=== PATIENT | female | born 1995 | race Two or more races ===

== ENCOUNTER 2018-02-14 00:53 | Observation (INO) | payer OTHER ==
[2018-02-14 01:16] VITALS: BMI 23.3
--- NOTE | 2018-02-14 01:47 | PDOC ---
History of Present Illness - General Chief Complaint: Nausea/Vomiting Stated Complaint: VOMITING, Time Seen by Provider: 02/14/18 01:41 History Source: Patient Exam Limitations: No Limitations - History of Present Illness Initial Comments: 02/14/18 02:13 HISTORY OF PRESENT ILLNESS: This is a 22-year-old presents emergency Department with lower abdominal and lower back pain for the past 3 days. Patient reports subjective fever but has not checked. Patient is afebrile here. Patient reports she has been vomiting more than 10 times in the past 24 hours. Vaginal discharge, vaginal bleeding, dysuria, hematuria, urinary frequency or urinary urgency. No recent travel or sick contacts. PAST MEDICAL HISTORY: Denies past medical history SURGICAL HISTORY: Denies ALLERGIES: No known drug allergies REVIEW OF SYSTEMS General/Constitutional: subjective fever. Denies weakness, weight change. HEENT: Denies change in vision. Denies ear pain or discharge. Denies sore throat. Cardiovascular: Denies chest pain or shortness of breath. Respiratory: Denies cough, wheezing, or hemoptysis. Gastrointestinal: Denies nausea, vomiting, diarrhea or constipation. Denies rectal bleeding. Genitourinary: Denies dysuria, frequency, or change in urination. Musculoskeletal: Denies joint or muscle swelling or pain. Denies neck pain. Diffuse lower back pain. Skin and breasts: Denies rash or easy bruising. Neurologic: Denies headache, vertigo, loss of consciousness, or loss of sensation. Psychiatric: Denies depression or anxiety. Endocrine: Denies increased thirst. Denies abnormal weight change. Hematologic/Lymphatic: Denies anemia, easy bleeding, or history of blood clots. Allergic/Immunologic: Denies hives or skin allergy. Denies latex allergy. PHYSICAL EXAM General Appearance: Well-appearing, appropriately dressed. No apparent distress , no intoxication. HEENT: EOMI, PERRLA, normal ENT inspection, normal voice, TMs normal, pharynx normal. No conjunctival pallor. No photophobia, scleral icterus. Neck: Supple. Trachea midline. No tenderness, rigidity, carotid bruit, stridor , lymphadenopathy, or thyromegaly. Respiratory/Chest: Lungs CTAB. No shortness of breath, chest tenderness, respiratory distress, accessory muscle use. No crackles, rales, rhonchi, stridor , wheezing, dullness Cardiovascular: RRR. S1, S2. No JVD, murmur, bradycardia, tachycardia. Vascular Pulses: Dorsalis-Pedis (R): 2+, Dorsalis-Pedis (L): 2+ Gastrointestinal/Abdominal: Normal bowel sounds. Abdomen soft, non-distended. No tenderness or rebound tenderness. No organomegaly, pulsatile mass, guarding, hernia, hepatomegaly, splenomegaly. Lymphatic: No adenopathy, tenderness. Musculoskeletal/Extremities: Normal inspection. FROM of all extremities, normal capillary refill. Pelvis Stable. Mild bilateral CVA tenderness. No tenderness to extremities, pedal edema, swelling, erythema or deformity. Integumentary: Appropriate color, dry, warm. 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 Fully oriented, alert. Appropriate mood/affect. Motor strength 5/5. No appreciable EOM palsy, facial droop or sensory deficit. Past History - Past Medical History Allergies/Adverse Reactions: Allergies Allergy/AdvReac Type Severity Reaction Status Date / Time No Known Allergies Allergy Verified 02/14/18 01:15 Home Medications: Ambulatory Orders No122/Iron/Folic Acid [ Multi Tablet] 1 each PO DAILY #30 tablet 02/14/18 - Suicide/Smoking/Psychosocial Hx Smoking History: Never smoked Have you smoked in the past 12 months: No Information on smoking cessation initiated: No Hx Alcohol Use: No Drug/Substance Use Hx: No *Physical Exam - Vital Signs Last Vital Signs Temp Pulse Resp BP Pulse Ox 99.3 F 110 H 20 123/76 99 02/14/18 01:15 02/14/18 01:15 02/14/18 01:15 02/14/18 01:15 02/14/18 01:15 ED Treatment Course - LABORATORY CBC & Chemistry Diagram: 02/14/18 11:20 02/14/18 11:20 Medical Decision Making - Medical Decision Making 02/14/18 02:16 A/P: 22-year-old with lower abdominal pain, lower back pain and vomiting for the past 3 days Mild bilateral CVA tenderness noted Abdomen soft nontender nondistended Patient denies care and is approximately 13 weeks by dates- LMP "end of October" DDx: Hyperemesis, renal calculi, pyelonephritis Labs, urine, normal saline, Zofran, ultrasound 02/14/18 03:20 CBC is unremarkable. Urinalysis notable for 1+ protein and 1+ ketones consistent with vomiting. Evaluation of chemistries reveals potassium at 2.8 and calcium is 6.5 corrected to 7.8. Stat EKG, potassium runs 3. Calcium chloride 40mEq. Change fluids to Normal saline with 20mEq potassium at 125cc/hr. Add-on Mg to previous sample. 02/14/18 04:26 EKG- SR with rate 94. Normal intervals. No ALESSANDRA, STD, TWI present. Mg-1.1. MgSO4 2g IV ordered. K riders on hold until after Mag. KCl 40mEq oral now. Admit to hospitalist. 02/14/18 04:31 Case d/w Dr. Cisneros who accepts pt for med/surg. *DC/Admit/Observation/Transfer Diagnosis at time of Disposition: Hyperemesis, Hypokalemia, Hypomagnesemia, Hypocalcemia - Discharge Dispostion Disposition: HOME Condition at time of disposition: Improved Decision to Admit order: Yes - Prescriptions - Referrals - Patient Instructions - Post Discharge Activity
[2018-02-14] MEDS ORDERED: ONDANSETRON 4 MG/2 ML VIAL IVPUSH ONE (02:09)
[2018-02-14] MEDS ORDERED: SODIUM CHLORIDE 1,000 ML IV STA (02:10)
--- NOTE | 2018-02-14 02:29 | PDOC ---
*Physical Exam - Vital Signs Last Vital Signs Temp Pulse Resp BP Pulse Ox 99.3 F 110 H 20 123/76 99 02/14/18 01:15 02/14/18 01:15 02/14/18 01:15 02/14/18 01:15 02/14/18 01:15 ED Treatment Course - LABORATORY CBC & Chemistry Diagram: 02/14/18 11:20 02/14/18 11:20 Medical Decision Making - Medical Decision Making 02/14/18 02:29 agree with care from DON Broussard *DC/Admit/Observation/Transfer Diagnosis at time of Disposition: Hyperemesis, Hypokalemia, Hypomagnesemia, Hypocalcemia - Discharge Dispostion Disposition: HOME Condition at time of disposition: Improved - Prescriptions - Referrals - Patient Instructions - Post Discharge Activity
[2018-02-14] MEDS ORDERED: ONDANSETRON 4 MG/2 ML VIAL ONE (02:32)
[2018-02-14 02:40] LABS: BASO % 0.2 % (0-2.0); HEMATOCRIT 32.1 % (32.4-45.2); HEMOGLOBIN 10.8 GM/dL (10.7-15.3); MCH 26.5 pg (25.7-33.7); MCHC 33.7 g/dl (32.0-36.0); MEAN CELL VOLUME 78.6 fl (80-96); MEAN PLT VOLUME 7.8 fl (7.5-11.1); MONO % 5.3 % (3.8-10.2); NEUT % 71.5 % (42.8-82.8); PLATELET COUNT 208 K/MM3 (134-434); RBC 4.09 M/mm3 (3.60-5.2); RDW 14.7 % (11.6-15.6); URINE APPEARANCE CLEAR; URINE BILIRUBIN NEGATIVE (<2.0 mg/dL); URINE COLOR DKYELLOW; URINE GLUCOSE (UA) NEGATIVE (NEGATIVE); URINE KETONE 1+ (NEGATIVE); URINE LEUK ESTERASE TRACE (NEGATIVE); URINE NITRITE NEGATIVE (NEGATIVE); URINE UROBILINOGEN 4.0 E.U/dl mg/dL (0.2-1.0); WHITE BLOOD COUNT 3.9 K/mm3 (4.0-10.0)
[2018-02-14 02:41] LABS: URINE PROTEIN 1+ (NEGATIVE)
[2018-02-14 02:43] LABS: EPI CELLS RARE /HPF (FEW); URINE BACTERIA RARE /hpf (NONE SEEN); URINE MUCUS MANY
[2018-02-14 03:03] LABS: ALBUMIN 2.4 g/dl (3.4-5.0); ALK PHOS 47 U/L (45-117); ANION GAP 8 MMOL/L (8-16); BILIRUBIN,TOTAL 0.3 mg/dL (0.2-1.0); BLOOD UREA NITROGEN 6 mg/dL (7-18); CHLORIDE 112 mmol/L (98-107); CO2 21 mmol/L (21-32); CREATININE 0.3 mg/dL (0.55-1.02); GLUCOSE,RANDOM 69 mg/dL (74-106); SGOT/AST 14 U/L (15-37); SGPT/ALT 12 U/L (12-78); SODIUM 141 mmol/L (136-145); TOT PROT 5.4 g/dl (6.4-8.2)
[2018-02-14 03:07] LABS: POTASSIUM 2.8 mmol/L (3.5-5.1)
[2018-02-14 03:08] LABS: CALCIUM 6.5 mg/dL (8.5-10.1)
[2018-02-14] MEDS ORDERED: POTASSIUM CHLORIDE ORAL LIQUID 20 MEQ/15 ML PO ONE ×3 (03:12→11:38)
[2018-02-14] MEDS ORDERED: KCL 10 MEQ IVPB 10 MEQ/100 ML INFUS.BAG IVPB SCH (03:15)
[2018-02-14] MEDS ORDERED: KCL 10 MEQ IVPB 10 MEQ/100 ML INFUS.BAG IVPB ONE (03:30)
[2018-02-14] MEDS ORDERED: SODIUM CHLORIDE 0.9%/KCL 20 MEQ/1,000 ML INFUS.BAG IV SCH (03:30)
[2018-02-14] MEDS ORDERED: POTASSIUM CHLORIDE ORAL LIQUID 20 MEQ/15 ML ONE ×2 (03:30→04:40)
[2018-02-14] MEDS ORDERED: MAGNESIUM SULF 50% (8.12 MEQ/2 ML-1 GM VIAL) IVPB ONE (04:10)
[2018-02-14] MEDS ORDERED: MAGNESIUM SULF 50% (8.12 MEQ/2 ML-1 GM VIAL) ONE (04:20)
--- NOTE | 2018-02-14 05:13 | PN ---
Teaching Attending Note Name of Resident: Humera Pablo ATTENDING PHYSICIAN STATEMENT I saw and evaluated the patient. I reviewed the resident's note and discussed the case with the resident. I agree with the resident's findings and plan as documented. SUBJECTIVE: Patient is a 22 year old who is 12 weeks , presents to the ER with vomiting, lower abdominal and lower back pain for the past 3 days. Patient reports subjective fever but has not checked. Patient is afebrile here. Patient reports she has been vomiting more than 10 times in the past 24 hours. Denies abnormal vaginal discharge, vaginal bleeding, dysuria, itch area, urinary frequency or urinary urgency. OBJECTIVE: Alert Vital Signs Period Temp Pulse Resp BP Sys/Turner Pulse Ox Last 24 Hr 99.3 F 110 20 123/76 99 HEENT: No Jaundice, eye redness or discharge, PERRLA, EOMI. Normocephalic, atraumatic. External ears are normal and hearing is grossly intact. No nasal discharge. Neck: Supple, nontender. No palpable adenopathy or thyromegaly. No JVD Chest: Good effort. Clear to auscultation and percussion. Heart: Regular. No S3, rub or murmur Abdomen: Not distended, soft, nontender and no HSM. No rebound or guarding. Normoactive bowel sounds. Ext: Peripheral pulses intact. No leg edema. Skin: Warm and dry. No petechiae, rash or ecchymosis. Neuro: Alert. Oriented x3. CN 2-12 grossly intact. Sensation grossly intact in all four extremities and DTR are symmetric. Current Medications Generic Name Dose Route Start Last Admin Trade Name Freq PRN Reason Stop Dose Admin Potassium Chloride 10 meq in 100 mls @ 100 mls/hr 02/14/18 03:15 02/14/18 03: 31 Potassium Chloride 10 Meq Premix Ivpb - IVPB 02/14/18 06:14 100 mls/hr Q60M BRANDIE Administration Potassium Chloride/Sodium Chloride 20 meq in 1,000 mls @ 125 mls/hr 02/14/18 03:30 02/14/18 03:29 Ns+20 Meq Kcl - IV 125 mls/hr ASDIR BRANDIE Administration Famotidine/Sodium Chloride 20 mg in 50 mls @ 100 mls/hr 02/14/18 05:21 05:26 Pepcid 20 Mg Premixed Ivpb - IVPB 02/14/18 05:50 100 mls/hr ONCE ONE Administration Home Medications Medication Instructions Recorded NK [No Known Home Medication] 02/14/18 Abnormal Lab Results 02/14/18 02/14/18 02/14/18 02:30 02:30 02:30 WBC 3.9 L Hct 32.1 L MCV 78.6 L Potassium 2.8 L* Chloride 112 H BUN 6 L Creatinine 0.3 L Random Glucose 69 L Calcium 6.5 L* Magnesium AST 14 L Total Protein 5.4 L Albumin 2.4 L Urine Protein 1+ H Urine Ketones 1+ H Urine Urobilinogen 4.0 e.u/dl H 02/14/18 03:30 WBC Hct MCV Potassium Chloride BUN Creatinine Random Glucose Calcium Magnesium 1.1 L AST Total Protein Albumin Urine Protein Urine Ketones Urine Urobilinogen ASSESSMENT AND PLAN: 1. Hyperemesis gravidarum with electrolyte abnormalities - No evidence of UTI. Will treat with IV NS and continue to replenish K, Mg+ and Calcium. Check phospshate. Continue pepcid and zofran. Low albumin, unusually "high" BP for and proteinuria are concerning. 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 Urine toxicology. 2. DVT prophylaxis - Heparin 5000u sq tid. 3. Advance directives - Full code
[2018-02-14] MEDS ORDERED: FAMOTIDINE 20 MG/50 ML IVPB 20 MG/50 ML MG IVPB ONE ×2 (05:21→05:22)
[2018-02-14] MEDS ORDERED: ONDANSETRON 4 MG/2 ML VIAL IVPUSH PRN (05:46)
--- NOTE | 2018-02-14 06:01 | HP ---
CHIEF COMPLAINT:severe vomiting and lower back pain X2 days PCP: HISTORY OF PRESENT ILLNESS: 22 y.o female with no significant past medical history presents to the ED with severe vomiting (around 20 episodes) over the past two days. Patient has not been able to keep any food down nor is she really tolerating any liquids. She had morning sickness with her first but it was not this bad. She is having R sided back pain, however, she is denying any urinary symptoms. ER course was notable for: (1) K: 2.8, Mg 1.1, Hgb 10.8 (2)U/A shows 4.0 urobilinogen, 1+ ketones, 1+ proteinuria (3) Recent Travel: none PAST MEDICAL HISTORY: no significant past medical history PAST SURGICAL HISTORY: none Social History: Smoking: smoked hookah 3 days ago Alcohol:denies Drugs: denies Family History: Allergies No Known Allergies Allergy (Verified 02/14/18 01:15) HOME MEDICATIONS: Home Medications Medication Instructions Recorded NK [No Known Home Medication] 02/14/18 REVIEW OF SYSTEMS CONSTITUTIONAL: Present: malaise, loss of appetite, Absent: fever, chills, diaphoresis, generalized weakness, weight change HEENT: Absent: rhinorrhea, nasal congestion, throat pain, throat swelling, difficulty swallowing, mouth swelling, ear pain, eye pain, visual changes CARDIOVASCULAR: Absent: chest pain, syncope, palpitations, irregular heart rate, lightheadedness , peripheral edema RESPIRATORY: Absent: cough, shortness of breath, dyspnea with exertion, orthopnea, wheezing, stridor, hemoptysis GASTROINTESTINAL: Present:nausea, vomiting, Absent: abdominal pain, abdominal distension, diarrhea, constipation, melena, hematochezia GENITOURINARY: Present:flank pain, Absent: dysuria, frequency, urgency, hesitancy, hematuria, genital pain MUSCULOSKELETAL: Absent: myalgia, arthralgia, joint swelling, back pain, neck pain SKIN: Absent: rash, itching, pallor HEMATOLOGIC/IMMUNOLOGIC: Absent: easy bleeding, easy bruising, lymphadenopathy, frequent infections ENDOCRINE: Absent: unexplained weight gain, unexplained weight loss, heat intolerance, cold intolerance NEUROLOGIC: Absent: headache, focal weakness or paresthesias, dizziness, unsteady gait, seizure, mental status changes, bladder or bowel incontinence PSYCHIATRIC: Absent: anxiety, depression, suicidal or homicidal ideation, hallucinations. PHYSICAL EXAMINATION Vital Signs - 24 hr 02/14/18 01:15 Temperature 99.3 F Pulse Rate 110 H Respiratory 20 Rate Blood Pressure 123/76 O2 Sat by Pulse 99 Oximetry (%) GENERAL: Awake, alert, and fully oriented, in no acute distress. LUNGS: Breath sounds equal, clear to auscultation bilaterally. No wheezes, and no crackles. No accessory muscle use. HEART: Regular rate and rhythm, normal S1 and S2 without murmur, rub or gallop. ABDOMEN: Soft, nontender, not distended, normoactive bowel sounds, no guarding, no rebound, no masses. No hepatomegaly or splenomegaly. MUSCULOSKELETAL: Normal range of motion at all joints. No bony deformities or tenderness. No CVA tenderness. EXTREMITIES: warm; well perfused; no clubbing cyanosis or LE edema NEUROLOGICAL: Cranial nerves II-XII intact. Normal speech. Normal gait. PSYCHIATRIC: Cooperative. Good eye contact. Appropriate mood and affect. SKIN: Warm, dry, normal turgor, no rashes or lesions noted, normal capillary refill. Laboratory Results - last 24 hr 02/14/18 02/14/18 02/14/18 02:30 02:30 02:30 WBC 3.9 L RBC 4.09 Hgb 10.8 Hct 32.1 L MCV 78.6 L MCH 26.5 MCHC 33.7 RDW 14.7 Plt Count 208 MPV 7.8 Absolute Neuts (auto) 2.8 Neutrophils % 71.5 Lymphocytes % 23.0 Monocytes % 5.3 Eosinophils % 0.0 Basophils % 0.2 Nucleated RBC % 0 Sodium 141 Potassium 2.8 L* Chloride 112 H Carbon Dioxide 21 Anion Gap 8 BUN 6 L Creatinine 0.3 L Creat Clearance w eGFR > 60 Random Glucose 69 L Calcium 6.5 L* Magnesium Total Bilirubin 0.3 AST 14 L ALT 12 Alkaline Phosphatase 47 Total Protein 5.4 L Albumin 2.4 L Urine Color Dkyellow Urine Appearance Clear Urine pH 6.0 Ur Specific [place] 1.026 Urine Protein 1+ H Urine Glucose (UA) Negative Urine Ketones 1+ H Urine Blood Negative Urine Nitrite Negative Urine Bilirubin Negative Urine Urobilinogen 4.0 e.u/dl H Ur Leukocyte Esterase Trace Urine WBC (Auto) 3 Urine RBC (Auto) 2 Ur Epithelial Cells Rare Urine Bacteria Rare Urine Mucus Many Blood Type Antibody Screen 02/14/18 02/14/18 02:30 03:30 WBC RBC Hgb Hct MCV MCH MCHC RDW Plt Count MPV Absolute Neuts (auto) Neutrophils % Lymphocytes % Monocytes % Eosinophils % Basophils % Nucleated RBC % Sodium Potassium Chloride Carbon Dioxide Anion Gap BUN Creatinine Creat Clearance w eGFR Random Glucose Calcium Magnesium 1.1 L Total Bilirubin AST ALT Alkaline Phosphatase Total Protein Albumin Urine Color Urine Appearance Urine pH Ur Specific [place] Urine Protein Urine Glucose (UA) Urine Ketones Urine Blood Urine Nitrite Urine Bilirubin Urine Urobilinogen Ur Leukocyte Esterase Urine WBC (Auto) Urine RBC (Auto) Ur Epithelial Cells Urine Bacteria Urine Mucus Blood Type A POSITIVE Antibody Screen Negative ASSESSMENT/PLAN: 22 y.o female with no significant past medical history presents to the ED with severe vomiting (around 20 episodes) over the past two days found to have severe electrolyte abnormalities . Hyperemesis Gravidarum with electrolyte abnormality: -giving IV fluids -repleting K, Mg,- repeat BMP this AM -urine toxicology given smoking history and cyclical vomiting -zofran and pepcid PRN for nausea -geology technician consult Anemia: -anemia workup in progress -f/u CBC in AM DVT Prophylaxis: Heparin 5000 sq F/E/N: NS +20meq Kcl replete electrolytes PO as tolerated Problem List - Problem (1) Hyperemesis Code(s): R11.10 - VOMITING, UNSPECIFIED (2) Hypocalcemia Code(s): E83.51 - HYPOCALCEMIA (3) Hypokalemia Code(s): E87.6 - HYPOKALEMIA (4) Hypomagnesemia Code(s): E83.42 - HYPOMAGNESEMIA Visit type - Emergency Visit Emergency Visit: Yes ED Registration Date: 02/14/18 Care time: The patient presented to the Emergency Department on the above date and was hospitalized for further evaluation of their emergent condition. - New Patient This patient is new to me today: Yes Date on this admission: 02/14/18 - Critical Care Critical Care patient: No Hospitalist Screening - Colonoscopy Questionnaire Colonoscopy Questionnaire: Colonoscopy Questionnaire - Patient: 50 - 75 years old and never had a screening colonoscopy: Unknown History of colon or rectal polyps, or CA: Unknown History of IBD, Crohn's disease or UC: Unknown History of abdominal radiation therapy as a child: Unknown - Relative: 1 with colon or rectal CA, or polyps at age 60 or younger: Unknown Colon or rectal CA diagnosed at age 45 or younger: Unknown Multiple relatives with colon or rectal CA: Unknown - Outcome: Screening Result: Negative Screen
[2018-02-14 06:06] LABS: VENOUS PC02 35.3 mmHg (38-52); VENOUS PH 7.39 (7.32-7.42); VENOUS PO2 29.2 mmHg (28-48)
--- NOTE | 2018-02-14 09:43 | EKG ---
Test Reason : Blood Pressure : / mmHG Vent. Rate : 094 BPM Atrial Rate : 094 BPM P-R Int : 164 ms QRS Dur : 082 ms QT Int : 346 ms P-R-T Axes : 057 062 034 degrees QTc Int : 432 ms NORMAL SINUS RHYTHM NORMAL ECG NO PREVIOUS ECGS AVAILABLE Confirmed by Humberto Baig MD ([id number]) on 02/14/2018 9:43:43 AM Referred By: Confirmed By:Humberto Baig MD
[2018-02-14 11:12] VITALS: BP 101/65; PULSE 103; TEMP 98.8
[2018-02-14 11:47] LABS: HEMATOCRIT 33.3 % (32.4-45.2); HEMOGLOBIN 11.2 GM/dL (10.7-15.3); MCH 26.4 pg (25.7-33.7); MCHC 33.6 g/dl (32.0-36.0); MEAN CELL VOLUME 78.6 fl (80-96); MEAN PLT VOLUME 8.1 fl (7.5-11.1); PLATELET COUNT 213 K/MM3 (134-434); RBC 4.23 M/mm3 (3.60-5.2); RDW 15.3 % (11.6-15.6); WHITE BLOOD COUNT 3.4 K/mm3 (4.0-10.0)
[2018-02-14 12:18] LABS: ANION GAP 8 MMOL/L (8-16); BLOOD UREA NITROGEN 5 mg/dL (7-18); CALCIUM 8.1 mg/dL (8.5-10.1); CHLORIDE 107 mmol/L (98-107); CO2 23 mmol/L (21-32); CREATININE 0.5 mg/dL (0.55-1.02); GLUCOSE,RANDOM 83 mg/dL (74-106); MAGNESIUM 2.1 mg/dL (1.8-2.4); PHOSPHOROUS 2.5 mg/dL (2.5-4.9); POTASSIUM 4.3 mmol/L (3.5-5.1); SODIUM 138 mmol/L (136-145)
[2018-02-14] MEDS ORDERED: MAGNESIUM 2GM/50ML STERILE WATER IVPB IVPB ONE (13:00)
--- NOTE | 2018-02-14 14:32 | DS ---
Physical Exam: SUBJECTIVE: Patient seen and examined at bedside on the maternity unit. She complains of her arm burning from the IV OBJECTIVE: Vital Signs Period Temp Pulse Resp BP Sys/Turner Pulse Ox Last 24 Hr 98.4 F-99.3 F 94-110 18-20 90-123/51-76 98-99 PHYSICAL EXAM GENERAL: The patient is awake, alert, and fully oriented, in no acute distress. HEAD: Normal with no signs of trauma. EYES: PERRL, extraocular movements intact. ENT: moist mucous membranes. NECK: Trachea midline, full range of motion, supple. LUNGS: Breath sounds equal, clear to auscultation bilaterally, no wheezes, no crackles, no accessory muscle use. HEART: Regular rate and rhythm, S1, S2 without murmur, rub or gallop. ABDOMEN: Soft, gravid uterus appreciated about 4 centimeters from the navel. nontender, nondistended EXTREMITIES: warm, well-perfused, no edema. NEUROLOGICAL: Cranial nerves II through XII grossly intact. SKIN: Warm, dry LABS Laboratory Results - last 24 hr 02/14/18 02/14/18 02/14/18 02:30 02:30 02:30 WBC 3.9 L RBC 4.09 Hgb 10.8 Hct 32.1 L MCV 78.6 L MCH 26.5 MCHC 33.7 RDW 14.7 Plt Count 208 MPV 7.8 Absolute Neuts (auto) 2.8 Neutrophils % 71.5 Lymphocytes % 23.0 Monocytes % 5.3 Eosinophils % 0.0 Basophils % 0.2 Nucleated RBC % 0 Retic Count VBG pH POC VBG pCO2 POC VBG pO2 Mixed VBG HCO3 Sodium 141 Potassium 2.8 L* Chloride 112 H Carbon Dioxide 21 Anion Gap 8 BUN 6 L Creatinine 0.3 L Creat Clearance w eGFR > 60 Random Glucose 69 L Calcium 6.5 L* Phosphorus Magnesium Ferritin Total Bilirubin 0.3 AST 14 L ALT 12 Alkaline Phosphatase 47 Total Protein 5.4 L Albumin 2.4 L Urine Color Dkyellow Urine Appearance Clear Urine pH 6.0 Ur Specific [place] 1.026 Urine Protein 1+ H Urine Glucose (UA) Negative Urine Ketones 1+ H Urine Blood Negative Urine Nitrite Negative Urine Bilirubin Negative Urine Urobilinogen 4.0 e.u/dl H Ur Leukocyte Esterase Trace Urine WBC (Auto) 3 Urine RBC (Auto) 2 Ur Epithelial Cells Rare Urine Bacteria Rare Urine Mucus Many Blood Type Antibody Screen 02/14/18 02/14/18 02/14/18 02:30 03:30 05:53 WBC RBC Hgb Hct MCV MCH MCHC RDW Plt Count MPV Absolute Neuts (auto) Neutrophils % Lymphocytes % Monocytes % Eosinophils % Basophils % Nucleated RBC % Retic Count VBG pH 7.39 POC VBG pCO2 35.3 L POC VBG pO2 29.2 Mixed VBG HCO3 20.8 Sodium Potassium Chloride Carbon Dioxide Anion Gap BUN Creatinine Creat Clearance w eGFR Random Glucose Calcium Phosphorus Magnesium 1.1 L Ferritin Total Bilirubin AST ALT Alkaline Phosphatase Total Protein Albumin Urine Color Urine Appearance Urine pH Ur Specific [place] Urine Protein Urine Glucose (UA) Urine Ketones Urine Blood Urine Nitrite Urine Bilirubin Urine Urobilinogen Ur Leukocyte Esterase Urine WBC (Auto) Urine RBC (Auto) Ur Epithelial Cells Urine Bacteria Urine Mucus Blood Type A POSITIVE Antibody Screen Negative 02/14/18 02/14/18 02/14/18 11:15 11:20 11:20 WBC 3.4 L RBC 4.23 Hgb 11.2 Hct 33.3 MCV 78.6 L MCH 26.4 MCHC 33.6 RDW 15.3 Plt Count 213 MPV 8.1 Absolute Neuts (auto) Neutrophils % Lymphocytes % Monocytes % Eosinophils % Basophils % Nucleated RBC % Retic Count 1.36 VBG pH POC VBG pCO2 POC VBG pO2 Mixed VBG HCO3 Sodium Potassium Chloride Carbon Dioxide Anion Gap BUN Creatinine Creat Clearance w eGFR Random Glucose Calcium Phosphorus Magnesium Ferritin Total Bilirubin AST ALT Alkaline Phosphatase Total Protein Albumin Urine Color Urine Appearance Urine pH Ur Specific [place] Urine Protein Urine Glucose (UA) Urine Ketones Urine Blood Urine Nitrite Urine Bilirubin Urine Urobilinogen Ur Leukocyte Esterase Urine WBC (Auto) Urine RBC (Auto) Ur Epithelial Cells Urine Bacteria Urine Mucus Blood Type A POSITIVE Antibody Screen 02/14/18 02/14/18 11:20 11:35 WBC RBC Hgb Hct MCV MCH MCHC RDW Plt Count MPV Absolute Neuts (auto) Neutrophils % Lymphocytes % Monocytes % Eosinophils % Basophils % Nucleated RBC % Retic Count VBG pH POC VBG pCO2 POC VBG pO2 Mixed VBG HCO3 Sodium 138 Potassium 4.3 Chloride 107 Carbon Dioxide 23 Anion Gap 8 BUN 5 L Creatinine 0.5 L Creat Clearance w eGFR > 60 Random Glucose 83 Calcium 8.1 L Phosphorus 2.5 Magnesium 2.1 Ferritin 13.0 Total Bilirubin AST ALT Alkaline Phosphatase Total Protein Albumin Urine Color Urine Appearance Urine pH Ur Specific [place] Urine Protein Urine Glucose (UA) Urine Ketones Urine Blood Urine Nitrite Urine Bilirubin Urine Urobilinogen Ur Leukocyte Esterase Urine WBC (Auto) Urine RBC (Auto) Ur Epithelial Cells Urine Bacteria Urine Mucus Blood Type Antibody Screen HOSPITAL COURSE: Date of Admission:02/14/18 Date of Discharge: 02/14/18 22F presents to the hospital with a chief complaint of vomiting. Patient found to have hyperemesis gravidum with electrolyte abnormalities (Mg, potassium , Calcium low). She was admitted hydrated and electrolytes repleted and labs now WNL. She also had an ultrasound done which shows a viable intrauterine estimated to be 15 weeks 6 days old. She is currently asymptomatic and patient has removed both her IVs herself because she wants to go home. 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 Patient has follow up at [facility] but wants to have care and delivery at [facility] not [facility]. Information for [address] [place] [address] clinic given to patient by RN. Minutes to complete discharge: 35 Discharge Summary Reason For Visit: HYPEREMESIS HYPOKALEMIA Current Active Problems Hyperemesis (Acute) Hyperemesis gravidarum (Acute) Hyperemesis gravidarum (Acute) Hyperemesis gravidarum before end of 22 week gestation with dehydration (Acute) Hyperemesis gravidarum before end of 22 week gestation with electrolyte imbalance (Acute) Hypocalcemia (Acute) Hypokalemia (Acute) Hypomagnesemia (Acute) Condition: Improved - Instructions Diet, Activity, Other Instructions: You were hospitalized because of your vomiting, low potassium, and low magnesium. You were treated with IV fluids and electrolytes and your electrolytes are now within the normal limits. continue to eat and hydrate yourself as tolerated. If your symptoms recur and/or get worse please call your doctor and/or go to the nearest emergency room. Please follow up with your manufacturing specialist for / care at [facility]. You should also be following with a primary care doctor. If you would like to establish care with me Please call [phone] for an appointment. I see patients every from 1-4:30pm. The address is [address] [place] [address] [place], [address] Saagstume. It is very important that you take Vitamins before, during, and after your . It was a pleasure taking care of you. Usted fue hospitalizado debido a glover vmito, potasio bajo y magnesio bajo. Le trataron con lquidos intravenosos y electrolitos y chucho electrolitos estn ahora dentro de los lmites normales. Contine comiendo e hidratarse kimberlyn se tolera. Si chucho sntomas se repiten y/o empeoran, por favor llame a glover mdico y/o dirjase a la jhonatan de emergencias ms cercana. Por favor siga con glover obstetra para atencin / en el centro de [facility]. Tambin debe estar siguiendo a un mdico de atencin primaria. Si usted desea establecer la atencin conmigo por favor llame [phone] para todd ashanti. Veo pacientes todos los jueves de 1 a 4:30pm. La direccin es [facility] [place], [place], [facility]. Pregunte por el Dr. Sagastume. Es muy importante que tome vitaminas prenatales antes, verónica y despus de glover embarazo. Fue un placer cuidar de ti. Referrals: Josh Sagastume, RES [Resident] - 1 Week (Call [phone] to schedule an appointment on from 1-4:30pm at [address] [place] [address], [address] ) Disposition: HOME - Home Medications Comprehensive Discharge Medication List: Ambulatory Orders No122/Iron/Folic Acid [ Multi Tablet] 1 each PO DAILY #30 tablet 02/14/18 This patient is new to me today: Yes Date on this admission: 02/14/18 Emergency Visit: Yes ED Registration Date: 02/14/18 Care time: The patient presented to the Emergency Department on the above date and was hospitalized for further evaluation of their emergent condition. Critical Care patient: No - Discharge Referral Referred to [facility] No
[2018-02-14 15:19] LABS: COCAINE, UR NEGATIVE ng/ml (CUTOFF=300); METHADONE, UR NEGATIVE ng/ml (CUTOFF=300); OPIATES, URI NEGATIVE ng/ml (CUTOFF=300); PHENCYCLIDINE,URINE NEGATIVE ng/ml (CUTOFF=25); URINE AMPHETAMINES NEGATIVE ng/ml (CUTOFF=500); URINE BARBITURATES NEGATIVE ng/ml (CUTOFF=200); URINE BENZODIAZEPINES NEGATIVE ng/ml (CUTOFF=200)
--- NOTE | 2018-02-14 16:05 | CON.OBG ---
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 Patient seen and evaluated. She 's on KCL IV and Benadryl for body itch. She has not been vomiting since admission. She feels hungry. She started care at [facility]. - History Source History Provided By: Patient Limitations to Obtaining History: No Limitations - Past Medical History ...LMP: 10/18/17 ...: Yes ...: 2 ...Para: 0 - Past Surgical History Past Surgical History: Yes: None - Alcohol/Substance Use Hx Alcohol Use: No - Smoking History Smoking history: Never smoked Have you smoked in the past 12 months: No - Social History Usual Living Arrangement: Alone History of Recent Travel: No Home Medications - Allergies Allergies/Adverse Reactions: Allergies Allergy/AdvReac Type Severity Reaction Status Date / Time No Known Allergies Allergy Verified 02/14/18 01:15 - Home Medications Home Medications: Ambulatory Orders No122/Iron/Folic Acid [ Multi Tablet] 1 each PO DAILY #30 tablet 02/14/18 Family Disease History - Family Disease History Family History: Unremarkable Review of Systems - Review of Systems Constitutional: reports: No Symptoms Eyes: reports: No Symptoms HENT: reports: No Symptoms Neck: reports: No Symptoms Cardiovascular: reports: No Symptoms Gastrointestinal: reports: Nausea Genitourinary: reports: No Symptoms Musculoskeletal: reports: No Symptoms Integumentary: reports: Pruritis Neurological: reports: No Symptoms Endocrine: reports: No Symptoms Psychiatric: reports: No Symptoms Pain Intensity: 0 Physical Exam-TOOL HARDENER Vital Signs: Vital Signs Temperature 98.8 F 02/14/18 10:00 Pulse Rate 103 H 02/14/18 10:00 Respiratory Rate 20 02/14/18 10:00 Blood Pressure 101/65 02/14/18 10:00 O2 Sat by Pulse Oximetry (%) 98 02/14/18 06:43 Constitutional: Yes: No Distress Eyes: Yes: Conjunctiva Clear HENT: Yes: Atraumatic Cardiovascular: Yes: Regular Rate and Rhythm Respiratory: Yes: Regular External Genitalia: Yes: Normal Vaginal Exam: Yes: Normal Uterus: Yes: Other (Gravid) Extremities: Yes: WNL Neurological: Yes: Alert, Oriented ...Motor Strength: WNL Psychiatric: Yes: Alert, Oriented Labs: CBC, BMP 02/14/18 11:20 02/14/18 11:20 Assessment/Plan Nausea / Vomiting in 12 weeks gestation Stable Follow up for care as outpatient
--- NOTE | 2018-02-14 16:49 | PN ---
Teaching Attending Note Name of Resident: Josh Sagastume ATTENDING PHYSICIAN STATEMENT I saw and evaluated the patient. I reviewed the resident's note and discussed the case with the resident. I agree with the resident's findings and plan as documented. SUBJECTIVE: Patient has no complaints. Tolerating diet. Had burning at IV site while KCl was infusing. OBJECTIVE: Vital Signs Period Temp Pulse Resp BP Sys/Turner Pulse Ox Last 24 Hr 98.4 F-99.3 F 94-110 18-20 90-123/51-76 98-99 HEART: S1S2, RRR LUNGS: Clear ABDOMEN: Soft, non-tender, normal BS EXTREMITIES: No edema Laboratory Results - last 24 hr 02/14/18 02/14/18 02/14/18 02:30 02:30 02:30 WBC 3.9 L RBC 4.09 Hgb 10.8 Hct 32.1 L MCV 78.6 L MCH 26.5 MCHC 33.7 RDW 14.7 Plt Count 208 MPV 7.8 Absolute Neuts (auto) 2.8 Neutrophils % 71.5 Lymphocytes % 23.0 Monocytes % 5.3 Eosinophils % 0.0 Basophils % 0.2 Nucleated RBC % 0 Retic Count VBG pH POC VBG pCO2 POC VBG pO2 Mixed VBG HCO3 Sodium 141 Potassium 2.8 L* Chloride 112 H Carbon Dioxide 21 Anion Gap 8 BUN 6 L Creatinine 0.3 L Creat Clearance w eGFR > 60 Random Glucose 69 L Calcium 6.5 L* Phosphorus Magnesium Ferritin Total Bilirubin 0.3 AST 14 L ALT 12 Alkaline Phosphatase 47 Total Protein 5.4 L Albumin 2.4 L Urine Color Dkyellow Urine Appearance Clear Urine pH 6.0 Ur Specific [place] 1.026 Urine Protein 1+ H Urine Glucose (UA) Negative Urine Ketones 1+ H Urine Blood Negative Urine Nitrite Negative Urine Bilirubin Negative Urine Urobilinogen 4.0 e.u/dl H Ur Leukocyte Esterase Trace Urine WBC (Auto) 3 Urine RBC (Auto) 2 Ur Epithelial Cells Rare Urine Bacteria Rare Urine Mucus Many Opiates Screen Methadone Screen Barbiturate Screen Phencyclidine Screen Ur Amphetamines Screen MDMA (Ecstasy) Screen Benzodiazepines Screen Cocaine Screen U Marijuana (THC) Screen Blood Type Antibody Screen 02/14/18 02/14/18 02/14/18 02:30 03:30 05:53 WBC RBC Hgb Hct MCV MCH MCHC RDW Plt Count MPV Absolute Neuts (auto) Neutrophils % Lymphocytes % Monocytes % Eosinophils % Basophils % Nucleated RBC % Retic Count VBG pH 7.39 POC VBG pCO2 35.3 L POC VBG pO2 29.2 Mixed VBG HCO3 20.8 Sodium Potassium Chloride Carbon Dioxide Anion Gap BUN Creatinine Creat Clearance w eGFR Random Glucose Calcium Phosphorus Magnesium 1.1 L Ferritin Total Bilirubin AST ALT Alkaline Phosphatase Total Protein Albumin Urine Color Urine Appearance Urine pH Ur Specific [place] Urine Protein Urine Glucose (UA) Urine Ketones Urine Blood Urine Nitrite Urine Bilirubin Urine Urobilinogen Ur Leukocyte Esterase Urine WBC (Auto) Urine RBC (Auto) Ur Epithelial Cells Urine Bacteria Urine Mucus Opiates Screen Methadone Screen Barbiturate Screen Phencyclidine Screen Ur Amphetamines Screen MDMA (Ecstasy) Screen Benzodiazepines Screen Cocaine Screen U Marijuana (THC) Screen Blood Type A POSITIVE Antibody Screen Negative 02/14/18 02/14/18 02/14/18 11:15 11:20 11:20 WBC 3.4 L RBC 4.23 Hgb 11.2 Hct 33.3 MCV 78.6 L MCH 26.4 MCHC 33.6 RDW 15.3 Plt Count 213 MPV 8.1 Absolute Neuts (auto) Neutrophils % Lymphocytes % Monocytes % Eosinophils % Basophils % Nucleated RBC % Retic Count 1.36 VBG pH POC VBG pCO2 POC VBG pO2 Mixed VBG HCO3 Sodium Potassium Chloride Carbon Dioxide Anion Gap BUN Creatinine Creat Clearance w eGFR Random Glucose Calcium Phosphorus Magnesium Ferritin Total Bilirubin AST ALT Alkaline Phosphatase Total Protein Albumin Urine Color Urine Appearance Urine pH Ur Specific [place] Urine Protein Urine Glucose (UA) Urine Ketones Urine Blood Urine Nitrite Urine Bilirubin Urine Urobilinogen Ur Leukocyte Esterase Urine WBC (Auto) Urine RBC (Auto) Ur Epithelial Cells Urine Bacteria Urine Mucus Opiates Screen Methadone Screen Barbiturate Screen Phencyclidine Screen Ur Amphetamines Screen MDMA (Ecstasy) Screen Benzodiazepines Screen Cocaine Screen U Marijuana (THC) Screen Blood Type A POSITIVE Antibody Screen 02/14/18 02/14/18 02/14/18 11:20 11:35 12:30 WBC RBC Hgb Hct MCV MCH MCHC RDW Plt Count MPV Absolute Neuts (auto) Neutrophils % Lymphocytes % Monocytes % Eosinophils % Basophils % Nucleated RBC % Retic Count VBG pH POC VBG pCO2 POC VBG pO2 Mixed VBG HCO3 Sodium 138 Potassium 4.3 Chloride 107 Carbon Dioxide 23 Anion Gap 8 BUN 5 L Creatinine 0.5 L Creat Clearance w eGFR > 60 Random Glucose 83 Calcium 8.1 L Phosphorus 2.5 Magnesium 2.1 Ferritin 13.0 Total Bilirubin AST ALT Alkaline Phosphatase Total Protein Albumin Urine Color Urine Appearance Urine pH Ur Specific [place] Urine Protein Urine Glucose (UA) Urine Ketones Urine Blood Urine Nitrite Urine Bilirubin Urine Urobilinogen Ur Leukocyte Esterase Urine WBC (Auto) Urine RBC (Auto) Ur Epithelial Cells Urine Bacteria Urine Mucus Opiates Screen Negative Methadone Screen Negative Barbiturate Screen Negative Phencyclidine Screen Negative Ur Amphetamines Screen Negative MDMA (Ecstasy) Screen Negative Benzodiazepines Screen Negative Cocaine Screen Negative U Marijuana (THC) Screen Negative Blood Type Antibody Screen ASSESSMENT AND PLAN: This is a 20 year old woman who presented to the ED with vomiting and found to have low potassium and magnesium. 1. Hyperemesis gravidarum with hypokalemia, hypomagnesemia - Potassium and magnesium have normalized - Tolerating diet 2. - US shows intrauterine gestation 15 weeks 6 days 3. Disposition - Ok for discharge home
[2018-02-15 06:06] LABS: SERUM IRON SATURATION 14 % (15-55); TOTAL IRON BINDING CAPACITY 332 ug/dL (250-450); UIBC 285 ug/dL (131-425)
== END 2018-02-14 14:30 | disposition home or self-care (01) ==
LOC: JER 00:53 → JERBED 04:33 → UNDOADMOB 04:42 → JERBED 04:42 → J3W 06:14
PROVIDERS: ADMIT Internal Medicine; ATTEND Internal Medicine
PROC: 3E033GC Introduction of Other Therapeutic Substance into Peripheral Vein, Percutaneous Approach (ICD-10-PCS; principal; 2018-02-14)
DX: O21.1 Hyperemesis gravidarum with metabolic disturbance (principal); Z3A.12 12 weeks gestation of pregnancy; E83.42 Hypomagnesemia; E83.51 Hypocalcemia
CPT/HCPCS: 36415; 76815-TC; 80048; 80053; 80307; 81003; 81015; 82728; 82803; 83540; 83550; 83735; 84100; 85025; 85027; 85044; 86850; 86900; 86901; 87086; 93005; 93010; 96374; 96375; 99283-25; G0378; J7030

== ENCOUNTER 2018-04-12 02:43 | Emergency (ER) | payer OTHER ==
[2018-04-12 04:10] VITALS: BMI 24.0
[2018-04-12] MEDS ORDERED: DEXTROSE 5%-LACTATED RINGERS 500 ML IV ONE (06:00)
[2018-04-12 06:37] LABS: URINE APPEARANCE SLCLOUDY; URINE COLOR AMBER; URINE GLUCOSE (UA) NEGATIVE (NEGATIVE); URINE KETONE 2+ (NEGATIVE); URINE LEUK ESTERASE 1+ (NEGATIVE); URINE NITRITE POSITIVE (NEGATIVE); URINE PROTEIN 1+ (NEGATIVE); URINE UROBILINOGEN 4.0 E.U/dl mg/dL (0.2-1.0)
[2018-04-12 06:39] LABS: HEMOGLOBIN 11.5 GM/dL (10.7-15.3); MCH 26.1 pg (25.7-33.7); MCHC 32.9 g/dl (32.0-36.0); MEAN CELL VOLUME 79.4 fl (80-96); PLATELET COUNT 257 K/MM3 (134-434); RDW 13.1 % (11.6-15.6); WHITE BLOOD COUNT 8.3 K/mm3 (4.0-10.0)
[2018-04-12 06:53] LABS: EPI CELLS RARE /HPF (FEW); URINE BACTERIA MANY /hpf (NONE SEEN); URINE MUCUS MANY
[2018-04-12] MEDS ORDERED: DEXTROSE 5%-LACTATED RINGERS 1,000 ML IV SCH (07:00)
[2018-04-12 07:05] LABS: ALBUMIN 3.1 g/dl (3.4-5.0); ALK PHOS 95 U/L (45-117); ANION GAP 12 MMOL/L (8-16); BILIRUBIN,TOTAL 0.9 mg/dL (0.2-1); BLOOD UREA NITROGEN 9 mg/dL (7-18); CALCIUM 8.7 mg/dL (8.5-10.1); CHLORIDE 100 mmol/L (98-107); CO2 24 mmol/L (21-32); CREATININE 0.4 mg/dL (0.55-1.3); GLUCOSE,RANDOM 73 mg/dL (74-106); SGOT/AST 21 U/L (15-37); SGPT/ALT 20 U/L (13-61); SODIUM 135 mmol/L (136-145); TOT PROT 7.4 g/dl (6.4-8.2)
[2018-04-12 07:30] VITALS: BP 105/54; PULSE 105; TEMP 98.9
[2018-04-12 11:22] LABS: COCAINE, UR NEGATIVE ng/ml (CUTOFF=300); METHADONE, UR NEGATIVE ng/ml (CUTOFF=300); OPIATES, URI NEGATIVE ng/ml (CUTOFF=300); PHENCYCLIDINE,URINE NEGATIVE ng/ml (CUTOFF=25); URINE AMPHETAMINES NEGATIVE ng/ml (CUTOFF=500); URINE BARBITURATES NEGATIVE ng/ml (CUTOFF=200); URINE BENZODIAZEPINES NEGATIVE ng/ml (CUTOFF=200)
[2018-04-12 13:55] LABS: BILIRUBIN,DIRECT 0.3 mg/dL (0.0-0.2)
== END 2018-04-12 10:10 | disposition home or self-care (01) ==
LOC: JER 02:43
DX: O26.899 Other specified pregnancy related conditions, unspecified trimester (principal); R50.9 Fever, unspecified; R11.10 Vomiting, unspecified
CPT/HCPCS: 36415; 80053; 80076; 80307; 81003; 81015; 85027; 99281-25

== ENCOUNTER 2018-04-15 01:10 | Inpatient (IN) | payer OTHER ==
--- NOTE | 2018-04-15 01:21 | PDOC ---
History of Present Illness - General Stated Complaint: VOMITING/FEVER/6MO Time Seen by Provider: 04/15/18 01:20 History Source: Patient Exam Limitations: No Limitations - History of Present Illness Initial Comments: 04/15/18 01:44 This is a 22 year old female with a who is 6 months that presents with nausea and billious vomiting for the past five days. She is unable to tolerate any po intake. She denies fever, chills, abdominal pain, sick contacts, weakness , body aches. She was here on 04/12/18 for the same symptoms. She was also found to have a urinary tract infection and was sent home on macrobid. She is unable to take the medication due to nausea and vomiting. 04/15/18 01:58 Timing/Duration: 1 week Severity: severe Associated Symptoms: reports: nausea/vomiting Past History - Travel Traveled outside of the country in the last 30 days: No - Past Medical History Allergies/Adverse Reactions: Allergies Allergy/AdvReac Type Severity Reaction Status Date / Time No Known Allergies Allergy Verified 04/12/18 04:09 Home Medications: Ambulatory Orders No122/Iron/Folic Acid [ Multi Tablet] 1 each PO DAILY #30 tablet 02/14/18 Nitrofurantoin Monohyd/M-Cryst [Macrobid -] 100 mg PO BID #14 capsule 04/12/18 Anemia: No Asthma: No Cancer: No Cardiac Disorders: No Hx Myocardial Infarction: No CVA: No COPD: No CHF: No - Immunization History Immunization Up to Date: Yes - Suicide/Smoking/Psychosocial Hx Smoking History: Never smoked Have you smoked in the past 12 months: No Hx Alcohol Use: No Drug/Substance Use Hx: No Substance Use Type: None Review of Systems - Review of Systems Able to Perform ROS?: Yes Is the patient limited Kyrgyz proficient: No Constitutional: Yes: Loss of Appetite, Weakness, Unintentional Wgt. Loss. No: Chills, Diaphoresis, Fever HEENTM: No: Eye Pain, Blurred Vision, Tearing, Recent change in vision, Throat Pain, Throat Swelling, Mouth Pain Respiratory: Yes: Cough (dry). No: Shortness of Breath, SOB with Exertion, Wheezing, Hemoptysis Cardiac (ROS): No: Chest Pain, Edema, Irregular Heart Rate, Lightheadedness, Palpitations ABD/GI: No: Abdominal Distended, Constipated, Diarrhea, Difficulty Swallowing Musculoskeletal: No: Back Pain, Joint Swelling, Muscle Weakness Neurological: No: Headache, Numbness Psychiatric: No: Anxiety, Depression Endocrine: No: Excessive Sweating, Intolerance to Cold, Intolerance to Heat *Physical Exam - Physical Exam General Appearance: Yes: Moderate Distress HEENT: positive: Normal Voice, Pharynx Normal Neck: positive: Trachea midline. negative: Tender Respiratory/Chest: positive: Lungs Clear, Normal Breath Sounds Cardiovascular: positive: Regular Rhythm, Regular Rate Vascular Pulses: Carotid (R): 2+, Carotid (L): 2+ Gastrointestinal/Abdominal: positive: Normal Bowel Sounds, Soft Musculoskeletal: positive: Normal Inspection ED Treatment Course - LABORATORY CBC & Chemistry Diagram: 04/15/18 03:06 04/15/18 03:06 Medical Decision Making - Medical Decision Making 04/15/18 02:06 This is a 22 year old, six months , n/v x 5dys; cannot tolerate po. With UTI, unable to take antibiotic, po. #hyperemesis gravidarum #UTI -cbc, bmp, mg,phos, -IVF bolus -glucose, thiamine -vitamin b6, promethazine -reglan prn -IV ceftriaxone 1gm IVPB -spoke with order filler who wants to admit to medical team 04/15/18 02:13 04/15/18 04:17 -Patient still not able to take oral intake or po medication -will admit for IV antibiotics for UTI -spoke with [facility] SERVICE TECHNICIAN Dr. Overton who accepted patient for observation admission *DC/Admit/Observation/Transfer Diagnosis at time of Disposition: Hyperemesis, Poor fluid intake Qualifiers: Weeks of gestation: 24 weeks Qualified Code(s): Z3A.24 - 24 weeks gestation of UTI (urinary tract infection) Qualifiers: Urinary tract infection type: site unspecified Hematuria presence: without hematuria Qualified Code(s): N39.0 - Urinary tract infection, site not specified - Discharge Dispostion Condition at time of disposition: Fair Decision to Admit order: Yes - Referrals - Patient Instructions - Post Discharge Activity - Transfer to Acute Care Facility Accepting Physician:: Dr. Overton
[2018-04-15] MEDS ORDERED: SODIUM CHLORIDE 1,000 ML IV STA (01:38)
[2018-04-15] MEDS ORDERED: THIAMINE HCL 200 MG/2 ML VIAL IVPB ONE (01:39)
[2018-04-15] MEDS ORDERED: DEXTROSE 50%-WATER - 25 GM/50 ML VIAL IVPUSH ONE (01:39)
[2018-04-15] MEDS ORDERED: PYRIDOXINE HCL (B-6) 100 MG TABLET PO ONE (01:40)
[2018-04-15] MEDS ORDERED: PROMETHAZINE HCL 25 MG/1 ML VIAL IVPB PRN (01:41)
[2018-04-15] MEDS ORDERED: NITROFURANTOIN MACROCRYSTAL 50 MG CAPSULE (FP) PO SCH (02:00)
[2018-04-15] MEDS ORDERED: PYRIDOXINE HCL (B-6) 50 MG TABLET (FP) PO ONE (02:00)
[2018-04-15] MEDS ORDERED: NITROFURANTOIN MACROCRYSTAL 50 MG CAPSULE (FP) PO ONE (02:00)
[2018-04-15] MEDS ORDERED: THIAMINE HCL 200 MG/2 ML VIAL ONE (03:02)
[2018-04-15] MEDS ORDERED: PROMETHAZINE HCL 25 MG/1 ML VIAL IVPB ONE (03:02)
[2018-04-15] MEDS ORDERED: NITROFURANTOIN MACROCRYSTAL 50 MG CAPSULE (FP) ONE (03:02)
[2018-04-15] MEDS ORDERED: PROMETHAZINE HCL 25 MG/1 ML VIAL ONE (03:03)
[2018-04-15 03:36] LABS: BASO % 0.3 % (0-2.0); EOS % 0.7 % (0-4.5); HEMOGLOBIN 11.4 GM/dL (10.7-15.3); LYMPH % 24.9 % (8-40); MCH 26.7 pg (25.7-33.7); MCHC 33.6 g/dl (32.0-36.0); MEAN CELL VOLUME 79.6 fl (80-96); MEAN PLT VOLUME 8.1 fl (7.5-11.1); MONO % 9.1 % (3.8-10.2); PLATELET COUNT 314 K/MM3 (134-434); RBC 4.27 M/mm3 (3.60-5.2); RDW 13.3 % (11.6-15.6); WHITE BLOOD COUNT 7.3 K/mm3 (4.0-10.0)
[2018-04-15 03:39] LABS: URINE APPEARANCE CLEAR; URINE COLOR AMBER; URINE GLUCOSE (UA) NEGATIVE (NEGATIVE); URINE KETONE 2+ (NEGATIVE); URINE LEUK ESTERASE 1+ (NEGATIVE); URINE NITRITE NEGATIVE (NEGATIVE); URINE PROTEIN 1+ (NEGATIVE); URINE UROBILINOGEN 4.0 E.U/dl mg/dL (0.2-1.0)
[2018-04-15 03:50] LABS: EPI CELLS RARE /HPF (FEW); URINE MUCUS RARE
[2018-04-15] MEDS ORDERED: SODIUM CHLORIDE 0.9% 500 ML INFUS.BAG IV ONE (03:56)
[2018-04-15 03:59] LABS: ALBUMIN 2.8 g/dl (3.4-5.0); ALK PHOS 98 U/L (45-117); ANION GAP 8 MMOL/L (8-16); BLOOD UREA NITROGEN 10 mg/dL (7-18); CALCIUM 8.7 mg/dL (8.5-10.1); CHLORIDE 98 mmol/L (98-107); CO2 29 mmol/L (21-32); CREATININE 0.6 mg/dL (0.55-1.3); GLUCOSE,RANDOM 111 mg/dL (74-106); MAGNESIUM 1.8 mg/dL (1.8-2.4); PHOSPHOROUS 3.2 mg/dL (2.5-4.9); POTASSIUM 3.5 mmol/L (3.5-5.1); SGOT/AST 24 U/L (15-37); SGPT/ALT 20 U/L (13-61); SODIUM 134 mmol/L (136-145); TOT PROT 7.6 g/dl (6.4-8.2)
[2018-04-15] MEDS ORDERED: METOCLOPRAMIDE HCL INJECTION 10 MG/2 ML VIAL IVPUSH ONE (04:16)
[2018-04-15] MEDS ORDERED: METOCLOPRAMIDE HCL INJECTION 10 MG/2 ML VIAL ONE (04:34)
[2018-04-15 07:54] VITALS: BMI 26.4
--- NOTE | 2018-04-15 11:15 | HP ---
Past Medical History - Admission History of Present Illness: 22yo presents with nausea and vomiting. Unable to keep anything down for the past few days. Started on antibiotics for uti and unable to take them. Pt seen in morning and reports feeling weak and tired from the vomiting. 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: Alzheimer's, CVA, Dementia, Migraine, Multiple Sclerosis, Peripheral Neuropathy, Parkinson's, Seizure, Syncope, TIA, Vertigo, Other Cardiovascular: No: AFIB, Aneurysm, Aortic Insufficiency, Aortic Stenosis, CAD, CHF, Deep Vein Thrombosis, HTN, Hyperlipdemia, CT, Mitral Insufficiency, Mitral Stenosis, Murmur, Pulmonary Hypertension, Other Hepatobiliary: No: Cirrhosis, Cholelithiasis, Cholecystitis, Choledocholithiasis , Hepatitis A, Hepatitis B, Hepatitis C, Other Renal/: No: Renal Failure, Renal Inusuff, BPH, Cancer, Hematuria, Hemodialysis , Neurogenic Bladder, Renal Calculi, UTI, Other Reproductive: No: Ectopic , Endometriosis, Fibroids, PID, Polycystic Ovary Syndrome, Postmenopausal, Other ...: 2 ...Para: 0 ...Term: 0 ...: 0 ...Spon : 1 ...Induced : 0 ...Multiple Gestation: 0 ...EDC by Svetlana: 08/04/18 Heme/Onc: No: Anemia, B12 Deficiency, Bleeding Disorder, Cancer, Current Chemotherapy, Current Radiation Therapy, Hemochromatosis, Hypercoaguable State, Myeloproliferative Synd, Sickle Cell Disease, Sickle Cell Trait, Thrombocytopenia, Other Infectious Disease: No: AIDS, C-Diff, Herpes Zoster, HIV, MRSA, STD's, Tuberculosis, VREF, Other Psych: No: Addictions, Anxiety, Bipolar, Depression, Panic, Psychosis, Schizophrenia, Other - Past Surgical History Past Surgical History: Yes: None Hx Myomectomy: No Hx Transabdominal Cerclage: No - Smoking History Smoking history: Never smoked Have you smoked in the past 12 months: No - Alcohol/Substance Use Hx Alcohol Use: No - Social History History of Recent Travel: No Home Medications - Allergies Allergies/Adverse Reactions: Allergies Allergy/AdvReac Type Severity Reaction Status Date / Time No Known Allergies Allergy Verified 04/12/18 04:09 - Home Medications Home Medications: Ambulatory Orders No122/Iron/Folic Acid [ Multi Tablet] 1 each PO DAILY #30 tablet 02/14/18 Nitrofurantoin Monohyd/M-Cryst [Macrobid -] 100 mg PO BID #14 capsule 04/12/18 Family Disease History - Family Disease History Family History: Unremarkable Review of Systems - Review of Systems Constitutional: reports: Loss of Appetite Gastrointestinal: reports: Nausea, Vomiting Genitourinary: reports: No Symptoms Musculoskeletal: reports: No Symptoms Physical Exam - Maternity Vital Signs: Vital Signs Temperature 98.2 F 04/15/18 06:37 Pulse Rate 101 H 04/15/18 06:37 Respiratory Rate 20 04/15/18 06:37 Blood Pressure 101/70 04/15/18 06:37 O2 Sat by Pulse Oximetry (%) 98 04/15/18 06:41 Constitutional: Yes: Well Nourished, No Distress, Calm Eyes: Yes: WNL, Conjunctiva Clear, EOM Intact HENT: Yes: WNL, Atraumatic, Normocephalic Neck: Yes: WNL, Supple, Trachea Midline Cardiovascular: Yes: WNL, Regular Rate and Rhythm Breast(s): Yes: WNL - Labs Lab Results: CBC, BMP 04/15/18 03:06 04/15/18 03:06 Hemorrhage Risk Assessment - Risk Factors Medium Risk Factors: Yes: None High Risk Factors: Yes: None Risk Score: 1 Risk Level: Medium Risk Problem List - Problems (1) Hyperemesis gravidarum Assessment/Plan: 22yo with hyperemesis. ER decided admission as pt unable to tolerated admit for observation for hyperemesis diet as tolerated reglan [id number] plan for discharge in am if pt continues to tolerate Dr. Overton Code(s): O21.0 - MILD HYPEREMESIS GRAVIDARUM
[2018-04-15] MEDS: METOCLOPRAMIDE HCL INJECTION 10 MG/2 ML VIAL IVPB PRN ×2 (16:38→22:10)
[2018-04-16 06:28] VITALS: PULSE 104
[2018-04-16] MEDS: METOCLOPRAMIDE HCL INJECTION 10 MG/2 ML VIAL IVPB PRN (11:38)
[2018-04-16 12:30] VITALS: BP 95/57; TEMP 98.7
== END 2018-04-16 16:30 | disposition home or self-care (01) | DRG 566 ==
LOC: JER 01:10 → JERBED 04:21 → UNDOADMIN 05:38 → JERBED 06:20 → J3W 06:20
PROVIDERS: ADMIT Obstetrics & Gynecology; ATTEND Obstetrics & Gynecology
DX: O21.0 Mild hyperemesis gravidarum (principal); O23.42 Unspecified infection of urinary tract in pregnancy, second trimester; Z3A.24 24 weeks gestation of pregnancy
CPT/HCPCS: 36415; 80053; 81003; 81015; 83735; 84100; 85025; 85027; 87086; 99282-25; J7030

== ENCOUNTER 2019-08-09 19:48 | Inpatient (IN) | payer OTHER ==
[2019-08-09] MEDS ORDERED: IBUPROFEN 600 MG TABLET (FP) PO ONE (19:56)
[2019-08-09] MEDS ORDERED: DEXAMETHASONE LIQUID 0.5 MG/5 ML PO ONE (19:56)
--- NOTE | 2019-08-09 19:56 | PDOC ---
Rapid Medical Evaluation Time Seen by Provider: 08/09/19 19:52 Medical Evaluation: Allergies Allergy/AdvReac Type Severity Reaction Status Date / Time No Known Allergies Allergy Verified 04/12/18 04:09 08/09/19 19:52 CC: sore throat, odynophagia, dry cough, fevers PE: OP erythematous. right submandibular lymphadenopathy Orders: strep, motrin, decadron Patient will proceed to ED for continued evaluation. Discharge Disposition - Diagnosis URI (upper respiratory infection) - Referrals - Patient Instructions - Post Discharge Activity
[2019-08-09] MEDS ORDERED: ACETAMINOPHEN 650 MG/20.3 ML ORAL SOLUTION (CUPS) PO ONE (20:32)
--- NOTE | 2019-08-09 20:32 | PDOC ---
History of Present Illness - General Chief Complaint: Sore Throat Stated Complaint: THROAT PAIN/FEVER VOMITING/BLOOD Time Seen by Provider: 08/09/19 19:52 History Source: Patient - History of Present Illness Initial Comments: 08/09/19 20:35 Chief complaint: Sore throat, chicken bone Patient is a 23-year-old female with no medical problems who states she was eating chicken and rice and felt the chicken bone get stuck in her throat, complaining of sore throat, complaining of inability swallow. Patient did not talk. Patient is not hypoxic. But appears to be in pain and distress from the sensation. GENERAL/CONSTITUTIONAL: No fever, weakness. dizziness HEAD, EYES, EARS, NOSE AND THROAT: No change in vision. No ear pain or discharge. +sore throat, sensation of bone CARDIOVASCULAR: No chest pain RESPIRATORY: No shortness of breath or cough GASTROINTESTINAL: No pain, nausea, vomiting, diarrhea or constipation GENITOURINARY: No dysuria MUSCULOSKELETAL: No neck or back pain SKIN: No rash NEUROLOGIC: No headache, vertigo, loss of consciousness, or loss of sensation. GENERAL: The patient is awake, alert, and fully oriented, in no acute distress. HEAD: Normal with no signs of trauma. EYES: Pupils equal, round and reactive to light, sclera anicteric, conjunctiva clear. ENT: pharynx: no erythema, no exudate, uvula midline NECK: supple CHEST: clear, nontender, rr ABD: soft, nontender BACK: no tenderness or signs of injury EXTREMITIES: Normal range of motion, no edema. NEUROLOGICAL: Normal speech, normal gait. SKIN: Warm, Dry Past History - Past Medical History Allergies/Adverse Reactions: Allergies Allergy/AdvReac Type Severity Reaction Status Date / Time No Known Allergies Allergy Verified 08/09/19 19:56 Home Medications: Ambulatory Orders No122/Iron/Folic Acid [ Multi Tablet] 1 each PO DAILY #30 tablet 02/14/18 Nitrofurantoin Monohyd/M-Cryst [Macrobid -] 100 mg PO BID #14 capsule 04/12/18 Metoclopramide HCl [Reglan] 10 mg PO QID PRN 14 Days #60 tablet 04/16/18 Anemia: No Asthma: No Cancer: No Cardiac Disorders: No CVA: No COPD: No CHF: No Diabetes: No HTN: No Seizures: No Thyroid Disease: No - Immunization History Immunization Up to Date: Yes - Psycho Social/Smoking Cessation Hx Smoking History: Never smoked Have you smoked in the past 12 months: No Hx Alcohol Use: No Drug/Substance Use Hx: No Substance Use Type: None Hx Substance Use Treatment: No *Physical Exam - Vital Signs Last Vital Signs Temp Pulse Resp BP Pulse Ox 97.9 F 98 H 18 130/71 100 08/09/19 19:52 08/09/19 19:52 08/09/19 19:52 08/09/19 19:52 08/09/19 19:52 Medical Decision Making - Medical Decision Making 08/09/19 20:36 23-year-old female, who feels chicken bone stuck in her throat, is very uncomfortable, but is able to speak and is not hypoxic. She states it is very painful to swallow. Patient was ordered Decadron and a CT scan to see if there is a bone there. Patient will get liquid Tylenol, Maalox and viscous lidocaine , go to CT scan, strep was also sent and will be reassessed. Due to the level of the stress of the patient secondary to not feeling like she can swallow and pain, discussed with Dr. Almeida, and signed out to him for further evaluation as patient needs to be observed. Discharge - Discharge Information Problems reviewed: Yes Clinical Impression/Diagnosis: Throat pain - Follow up/Referral Referrals: Samuel Cole [Primary Care Provider] - - Patient Discharge Instructions - Post Discharge Activity
[2019-08-09] MEDS ORDERED: LIDOCAINE VISCOUS 2% ORAL/TOP 20 ML UNIT-DOSE CUP MM ONE (20:33)
[2019-08-09] MEDS ORDERED: MAG HYDROX/AL HYDROX/SIMETH -MYLANTA- ORAL SUSPENSION PO ONE (20:33)
[2019-08-09] MEDS ORDERED: MAG HYDROX/AL HYDROX/SIMETH 30 ML UNIT-DOSE CUP ONE (20:35)
[2019-08-09] MEDS ORDERED: DEXAMETHASONE SOD PHOSPHATE 10 MG/1 ML VIAL ONE (20:35)
[2019-08-09] MEDS ORDERED: ACETAMINOPHEN 650 MG/20.3 ML ORAL SOLUTION (CUPS) ONE (20:36)
[2019-08-09] MEDS ORDERED: LIDOCAINE VISCOUS 2% ORAL/TOP 20 ML UNIT-DOSE CUP ONE (20:38)
--- NOTE | 2019-08-09 22:21 | PDOC ---
*Physical Exam - Vital Signs Last Vital Signs Temp Pulse Resp BP Pulse Ox 97.9 F 98 H 18 130/71 100 08/09/19 19:52 08/09/19 19:52 08/09/19 19:52 08/09/19 19:52 08/09/19 19:52 08/10/19 00:05 - Physical Exam Assumed care of patient from fast track. The patient is 23 yo F with no past medical history presenting s/p eating a chicken bone with FB retention sensation. The patient's CT was significant for retropharyngeal fluid at the C3 space without visualization of FB. The patient continues to have pain located in the posterior pharynx. ED Treatment Course - LABORATORY CBC & Chemistry Diagram: 08/10/19 00:10 08/10/19 00:10 - Medications Given in the ED: ED Medications Discontinued Medications Generic Name Dose Route Start Last Admin Trade Name Freq PRN Reason Stop Dose Admin Acetaminophen 650 mg 08/09/19 20:32 08/09/19 20:42 Tylenol Oral Solution - PO 08/09/19 20:33 650 mg ONCE ONE Administration Al Hydroxide/Mg Hydroxide 30 ml 08/09/19 20:33 08/09/19 20:42 Mylanta Suspension - PO 08/09/19 20:34 30 mg ONCE ONE Administration Dexamethasone 10 mg 08/09/19 19:56 08/09/19 20:42 Decadron Liquid - PO 08/09/19 19:57 10 mg ONCE ONE Administration Ibuprofen 600 mg 08/09/19 19:56 08/09/19 21:00 Motrin - PO 08/09/19 19:57 Not Given ONCE ONE Lidocaine HCl 10 ml 08/09/19 20:33 08/09/19 20:43 Xylocaine 2% Viscous Oral - MM 08/09/19 20:34 10 ml ONCE ONE Administration Medical Decision Making - Medical Decision Making CT of the soft tissue without contrast noted retropharyngeal fluid without visualization of the FB. Incidentally, the CT noted that The patient continues to have pain without fever Dr. Cramer at [facility] was contacted (no ENT cash application clerk) and suggested the patient be admitted for observation with follow up with GI on outpatient. Dr. Moran was contacted who stated he would see the patient tomorrow. He advised the patient receive a CT of the soft tissue and neck with IV contrast to look for enhancement in the area of the fluid collection. If there is enhancement, recommends broad spectrum abx. If no enhancement, recommends treatment for inflammation with pain control. The patient was told about the admission. Per the patient, she does not wish to stay for admission because she has a 1 year old child at home that has no supervision other than the patient's younger family members who are not, per the patient, equipped to take care of the child. I asked the patient if it was possible to have other family members to watch the baby and she said no. The patient's mother, who was present in the room, stated she could not watch the child because she was working. When I asked the mother if she could watch the child and miss work so that the patient can be admitted, she declined to skip work. I relayed to the patient that by denying admission it would be jeopardizing her life and could result either in serious morbidities or result in . The patient understood the risks by stating she understands the danger of leaving before admission but stated she has no other choice due to lack of child adolescent psychiatrist. I asked the patient if she would allow blood work to be done and to have the re-scan in order to determine enhancement and she agreed to this. The plan is to give the patient abx prior to discharge if she continues to want to AMA if there is fluid enhancement. She stated she would come back to the hospital tomorrow after securing child adolescent psychiatrist. 08/10/19 00:09 08/10/19 01:51 Discharge - Discharge Information Problems reviewed: Yes Clinical Impression/Diagnosis: Throat pain - Follow up/Referral Referrals: Samuel Cole [Primary Care Provider] - - Patient Discharge Instructions - Post Discharge Activity
--- NOTE | 2019-08-09 22:25 | PDOC ---
*Physical Exam - Vital Signs Last Vital Signs Temp Pulse Resp BP Pulse Ox 97.9 F 98 H 18 130/71 100 08/09/19 19:52 08/09/19 19:52 08/09/19 19:52 08/09/19 19:52 08/09/19 19:52 ED Treatment Course - LABORATORY CBC & Chemistry Diagram: 08/10/19 05:40 08/10/19 05:40 - Medications Given in the ED: ED Medications Discontinued Medications Generic Name Dose Route Start Last Admin Trade Name Lupis PRN Reason Stop Dose Admin Acetaminophen 650 mg 08/09/19 20:32 08/09/19 20:42 Tylenol Oral Solution - PO 08/09/19 20:33 650 mg ONCE ONE Administration Al Hydroxide/Mg Hydroxide 30 ml 08/09/19 20:33 08/09/19 20:42 Mylanta Suspension - PO 08/09/19 20:34 30 mg ONCE ONE Administration Dexamethasone 10 mg 08/09/19 19:56 08/09/19 20:42 Decadron Liquid - PO 08/09/19 19:57 10 mg ONCE ONE Administration Ibuprofen 600 mg 08/09/19 19:56 08/09/19 21:00 Motrin - PO 08/09/19 19:57 Not Given ONCE ONE Lidocaine HCl 10 ml 08/09/19 20:33 08/09/19 20:43 Xylocaine 2% Viscous Oral - MM 08/09/19 20:34 10 ml ONCE ONE Administration Medical Decision Making - Medical Decision Making 08/09/19 23:12 Case received as uptriage from [facility], briefly, 23F c/o throat pain after swallowing a chicken bone will eval for retained foreign body, trauma analgesia f/u ct dispo per clinical course non-con CT of neck appreciated ENT evaluation Discharge - Discharge Information Problems reviewed: Yes Clinical Impression/Diagnosis: Throat pain Condition: Stable Disposition: HOME - Follow up/Referral - Patient Discharge Instructions - Post Discharge Activity
[2019-08-10 00:53] LABS: BASO % 0.1 % (0-2.0); EOS % 0.2 % (0-4.5); HEMATOCRIT 36.6 % (32.4-45.2); HEMOGLOBIN 11.8 GM/dL (10.7-15.3); LYMPH % 11.4 % (8-40); MCH 24.4 pg (25.7-33.7); MCHC 32.2 g/dl (32.0-36.0); MEAN CELL VOLUME 75.7 fl (80-96); MEAN PLT VOLUME 8.4 fl (7.5-11.1); MONO % 1.1 % (3.8-10.2); NEUT % 87.2 % (42.8-82.8); PLATELET COUNT 375 K/MM3 (134-434); RBC 4.84 M/mm3 (3.60-5.2); WHITE BLOOD COUNT 10.1 K/mm3 (4.0-10.0)
[2019-08-10 01:19] LABS: ALBUMIN 3.2 g/dl (3.4-5.0); BILIRUBIN,TOTAL 0.5 mg/dL (0.2-1); BLOOD UREA NITROGEN 10.9 mg/dL (7-18); CALCIUM 7.7 mg/dL (8.5-10.1); CREATININE 0.6 mg/dL (0.55-1.3); POTASSIUM 4.5 mmol/L (3.5-5.1); TOT PROT 7.2 g/dl (6.4-8.2)
[2019-08-10 02:19] LABS: INR 1.1 (0.83-1.09)
--- NOTE | 2019-08-10 02:37 | CON.GI ---
Consult Consult Specialty:: GI Referred by:: ER Reason for Consultation:: odynophagia - History of Present Illness Chief Complaint: [employer] psychologist experimental [id number]: pain when swallowing History of Present Illness: 23F admitted for evaluation of pain upon swallowing. She explains that this started after eating chicken 6pm yesterday evening. She is concerned that she may have swallowed a bone. non contrast CT scan of the neck revealed a small amount of retropharyngeal fluid. It failed to reveal any obvious radioopaque foreign body. She had a follow-up CT scan of the neck with IV contrast that is pending. She denies cough, fevers, chills. - History Source History Provided By: Patient - Past Medical History ...LMP: 10/18/17 Additional Medical History: Denies - Past Surgical History Past Surgical History: Yes: None Additional Surgical History: Denies - Alcohol/Substance Use Hx Alcohol Use: Yes (occasional) History of Substance Use: reports: None - Smoking History Smoking history: Current some day smoker (Hookah) Have you smoked in the past 12 months: No - Social History Usual Living Arrangement: Alone ADL: Independent History of Recent Travel: No Home Medications - Allergies Allergies/Adverse Reactions: Allergies Allergy/AdvReac Type Severity Reaction Status Date / Time No Known Allergies Allergy Verified 08/09/19 19:56 - Home Medications Home Medications: Ambulatory Orders No122/Iron/Folic Acid [ Multi Tablet] 1 each PO DAILY #30 tablet 02/14/18 Nitrofurantoin Monohyd/M-Cryst [Macrobid -] 100 mg PO BID #14 capsule 04/12/18 Metoclopramide HCl [Reglan] 10 mg PO QID PRN 14 Days #60 tablet 04/16/18 Review of Systems - Review of Systems Constitutional: denies: Chills, Fever HENT: reports: Throat Pain Physical Exam-GI Vital Signs: Vital Signs Temperature 97.5 F L 08/09/19 23:34 Pulse Rate 91 H 08/09/19 23:34 Respiratory Rate 18 08/09/19 23:34 Blood Pressure 119/79 08/09/19 23:34 O2 Sat by Pulse Oximetry (%) 100 08/09/19 23:34 Constitutional: Yes: Calm Eyes: No: Sclera Icterus Cardiovascular: Yes: Regular Rate and Rhythm Respiratory: Yes: CTA Bilaterally Gastrointestinal Inspection: No: Distention ...Auscultate: Yes: Normoactive Bowel Sounds ...Palpate: Yes: Soft. No: Hepatomegaly, Splenomegaly, Tenderness ...Percussion: No: Tympanitic Edema: No (No LE edema) Neurological: Yes: Alert Labs: CBC, BMP 08/10/19 00:10 08/10/19 00:10 INR, PTT INR 1.10 (0.83-1.09) H 08/10/19 00:10 Hepatic Panel Total Bilirubin 0.5 mg/dL (0.2-1) 08/10/19 00:10 AST 42 U/L (15-37) H 08/10/19 00:10 ALT 19 U/L (13-61) 08/10/19 00:10 Alkaline Phosphatase 97 U/L (45-117) 08/10/19 00:10 Albumin 3.2 g/dl (3.4-5.0) L 08/10/19 00:10 Imaging - Results Cat Scan: Report Reviewed Problem List - Problems (1) Throat pain Assessment/Plan: AFter having eaten chicken. Discussed the plan for upper endoscopy pending result of repeat CT scan, Discussed potential risks of the procedure like but not limited to bleeding, perforation requiring surgery to repair, infection, sedation medication effects all of which could be life threatening. She has agreed to the procedure. NPO IV fluids Code(s): R07.0 - PAIN IN THROAT
--- NOTE | 2019-08-10 03:20 | PN ---
Progress Note (short form) - Note Progress Note: Repeat CT scan of the neck failed to reveal any fluid collections. Patient was concerned about her son at home and was saying that she wants to leave. I explained that leaving a retained bone in her throat or esophagus could lead to potentially life threatening consequences and that it would be safer to have this performed in the morning when the full endoscopy staff is available. She has agreed to stay. Ordered AM labs Problem List - Problems (1) Throat pain Code(s): R07.0 - PAIN IN THROAT
--- NOTE | 2019-08-10 04:04 | PDOC ---
*Physical Exam - Vital Signs Last Vital Signs Temp Pulse Resp BP Pulse Ox 97.5 F L 91 H 18 119/79 100 08/09/19 23:34 08/09/19 23:34 08/09/19 23:34 08/09/19 23:34 08/09/19 23:34 ED Treatment Course - LABORATORY CBC & Chemistry Diagram: 08/10/19 05:40 08/10/19 05:40 - ADDITIONAL ORDERS Additional order review: Laboratory Results 08/10/19 08/10/19 08/10/19 00:10 00:10 00:10 PT with INR 13.00 INR 1.10 H Sodium 142 Potassium 4.5 Chloride 115 H Carbon Dioxide 24 Anion Gap 3 L BUN 10.9 Creatinine 0.6 Est GFR (CKD-EPI)AfAm 148.90 Est GFR (CKD-EPI)NonAf 128.48 Random Glucose 100 Calcium 7.7 L Total Bilirubin 0.5 AST 42 H ALT 19 Alkaline Phosphatase 97 Total Protein 7.2 Albumin 3.2 L Serum , Qual Negative 08/10/19 00:10 RBC 4.84 MCV 75.7 L MCHC 32.2 RDW 14.0 MPV 8.4 Neutrophils % 87.2 H D Lymphocytes % 11.4 D Monocytes % 1.1 L D Eosinophils % 0.2 Basophils % 0.1 - Medications Given in the ED: ED Medications Discontinued Medications Generic Name Dose Route Start Last Admin Trade Name Freq PRN Reason Stop Dose Admin Acetaminophen 650 mg 08/09/19 20:32 08/09/19 20:42 Tylenol Oral Solution - PO 08/09/19 20:33 650 mg ONCE ONE Administration Al Hydroxide/Mg Hydroxide 30 ml 08/09/19 20:33 08/09/19 20:42 Mylanta Suspension - PO 08/09/19 20:34 30 mg ONCE ONE Administration Dexamethasone 10 mg 08/09/19 19:56 08/09/19 20:42 Decadron Liquid - PO 08/09/19 19:57 10 mg ONCE ONE Administration Ibuprofen 600 mg 08/09/19 19:56 08/09/19 21:00 Motrin - PO 08/09/19 19:57 Not Given ONCE ONE Lidocaine HCl 10 ml 08/09/19 20:33 08/09/19 20:43 Xylocaine 2% Viscous Oral - MM 08/09/19 20:34 10 ml ONCE ONE Administration Medical Decision Making - Medical Decision Making S/O from Day team Pending CT neck with contrast to r/o extravasation CT neg, Dr. Moreno in GI evaluates pt, states EGD in the AM when Endo team are in house is recommended 08/10/19 04:12 case discussed with admitting team, pt admitted Discharge - Discharge Information Problems reviewed: Yes Clinical Impression/Diagnosis: Throat pain Condition: Stable Disposition: HOME - Admission Yes - Follow up/Referral - Patient Discharge Instructions - Post Discharge Activity
[2019-08-10] MEDS ORDERED: ACETAMINOPHEN 1000 MG/100 ML VIAL (NON FORMULARY) IVPB PRN (04:44)
--- NOTE | 2019-08-10 04:45 | HP ---
CHIEF COMPLAINT: throat pain PCP: HISTORY OF PRESENT ILLNESS: History obtained with assistance of Cousin at bedside. Patient is a 23 year old female with no reported medical history presents with complaint of throat pain. Symptoms began approx. 18:00 as she was passenger in motor vehicle, eating mixed portion of chicken (with bones) and rice. Patient suddenly experienced throat pain after swallowing piece of chicken, which she believes was due to a chicken bone. She endorsed numerous (unable to quantify) episodes of blood tinged vomiting. Patient denies eating or drinking anything since onset of these symptoms. Denies prior occurrence of similar symptoms. Denies subjective fevers, chills, shortness of breath, chest pain, palpitations , abdominal pain, diarrhea, melena, hematochezia. 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 Last menstrual period this past June (unable to recall date). Currently sexually active with male partner. Takes oral contraceptives. ER course was notable for: (1) CT neck reveals small amount of nonspecific retropharyngeal fluid at C3 level. (2) GI, ENT consult. (3) Repeat CT neck with IV contrast Recent Travel: denies PAST MEDICAL HISTORY: none reported PAST SURGICAL HISTORY: right parotid gland resection (5 years ago), left breast cyst excision (1 year ago), ceserean section (1 year ago). Family History: Endorses history of diabetes mellitus, hypertension in father. Denies known oncologic history. Social History: Born in [place], immigrated to [place] at age 20. Lives with cousin, and 1 year old child. 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 Independent in activities of daily living. Smoking: Admits smoking hookah on social occasion Alcohol: Endorses drinking 2-3 beers daily Drugs: Denies illicit drug use. Allergies No Known Allergies Allergy (Verified 08/09/19 19:56) HOME MEDICATIONS: Home Medications Medication Instructions Recorded No122/Iron/Folic Acid 1 each PO DAILY #30 tablet 02/14/18 [ Multi Tablet] Nitrofurantoin Monohyd/M-Cryst 100 mg PO BID #14 capsule 04/12/18 [Macrobid -] Metoclopramide HCl [Reglan] 10 mg PO QID PRN 14 Days #60 tablet 04/16/18 REVIEW OF SYSTEMS CONSTITUTIONAL: Absent: fever, chills, diaphoresis, generalized weakness, malaise, loss of appetite, weight change HEENT: Admits: thoat pain. Absent: rhinorrhea, nasal congestion, throat swelling, difficulty swallowing, mouth swelling, ear pain, eye pain, visual changes CARDIOVASCULAR: Absent: chest pain, syncope, palpitations, irregular heart rate, lightheadedness , peripheral edema RESPIRATORY: Absent: cough, shortness of breath, dyspnea with exertion, orthopnea, wheezing, stridor, hemoptysis GASTROINTESTINAL: Admits: nausea, vomiting, hematemesis. Absent: abdominal pain, abdominal distension, diarrhea, constipation, melena, hematochezia GENITOURINARY: Absent: dysuria, frequency, urgency, hesitancy, hematuria, flank pain, genital pain MUSCULOSKELETAL: Absent: myalgia, arthralgia, joint swelling, back pain, neck pain SKIN: Absent: rash, itching, pallor HEMATOLOGIC/IMMUNOLOGIC: Absent: easy bleeding, easy bruising, lymphadenopathy, frequent infections ENDOCRINE: Absent: unexplained weight gain, unexplained weight loss, heat intolerance, cold intolerance NEUROLOGIC: Absent: headache, focal weakness or paresthesias, dizziness, unsteady gait, seizure, mental status changes, bladder or bowel incontinence PSYCHIATRIC: Absent: anxiety, depression, suicidal or homicidal ideation, hallucinations. PHYSICAL EXAMINATION Vital Signs - 24 hr 08/09/19 08/09/19 19:52 23:34 Temperature 97.9 F 97.5 F L Pulse Rate 98 H Pulse Rate [ 91 H Left Radial] Respiratory 18 18 Rate Blood Pressure 130/71 Blood Pressure 119/79 [Right Arm] O2 Sat by Pulse 100 100 Oximetry (%) GENERAL: The patient is awake, alert, and fully oriented, in mild distress. HEAD: Normocephalic, atraumatic. Right sided facial scar overlying angle of mandible, intact, well healed. EYES: PERRL, extraocular movements intact, sclera anicteric, conjunctiva clear. ENT: Oropharynx erythematous, without charissa blood. Moist mucous membranes. NECK: Tender to palpation. Trachea midline, supple, full range of motion. Negative stridor auscultated. LUNGS: Breath sounds equal, clear to auscultation bilaterally. No wheezes, no crackles. No accessory muscle use. HEART: Regular rate and rhythm. S1, S2 without murmur, rub or gallop. ABDOMEN: Soft, nondistended. Nontender to light and deep palpation x4 quadrants. No rebound tenderness, no guarding. Normoactive bowel sounds x4 quadrants. No hepatosplenomegaly appreciated. Horizontal lower abdominal scar from section noted intact, well healed. EXTREMITIES: 2+ radial, dorsalis pedis pulses bilaterally. Warm, well-perfused. No lower extremity edema bilaterally. NEUROLOGICAL: Cranial nerves II through XII grossly intact. Normal speech. Strength 5/5 bilateral upper and lower extremities. No gross focal deficits. PSYCH: Normal mood, normal affect upon my encounter. SKIN: Warm, dry. No rashes noted. Right sided facial scar overlying angle of mandible, horizontal lower abdominal scar noted. Laboratory Results - last 24 hr 08/09/19 08/10/19 08/10/19 20:00 00:10 00:10 WBC 10.1 H RBC 4.84 Hgb 11.8 Hct 36.6 MCV 75.7 L MCH 24.4 L MCHC 32.2 RDW 14.0 Plt Count 375 MPV 8.4 Absolute Neuts (auto) 8.8 H Neutrophils % 87.2 H D Lymphocytes % 11.4 D Monocytes % 1.1 L D Eosinophils % 0.2 Basophils % 0.1 Nucleated RBC % 0 PT with INR INR Sodium 142 Potassium 4.5 Chloride 115 H Carbon Dioxide 24 Anion Gap 3 L BUN 10.9 Creatinine 0.6 Est GFR (CKD-EPI)AfAm 148.90 Est GFR (CKD-EPI)NonAf 128.48 Random Glucose 100 Calcium 7.7 L Total Bilirubin 0.5 AST 42 H ALT 19 Alkaline Phosphatase 97 Total Protein 7.2 Albumin 3.2 L Serum , Qual Group A Strep Rapid Negative 08/10/19 08/10/19 00:10 00:10 WBC RBC Hgb Hct MCV MCH MCHC RDW Plt Count MPV Absolute Neuts (auto) Neutrophils % Lymphocytes % Monocytes % Eosinophils % Basophils % Nucleated RBC % PT with INR 13.00 INR 1.10 H Sodium Potassium Chloride Carbon Dioxide Anion Gap BUN Creatinine Est GFR (CKD-EPI)AfAm Est GFR (CKD-EPI)NonAf Random Glucose Calcium Total Bilirubin AST ALT Alkaline Phosphatase Total Protein Albumin Serum , Qual Negative Group A Strep Rapid ASSESSMENT/PLAN: Patient is a 23 year old female with no reported medical history presents with complaint of throat pain. Odynophgia, ?foreign body -Symptoms occurred during consumption of chicken (with bones) and rice. Patient endorses that she feels retained mass in the throat causing the pain. Symptoms likely compounded by irritation of esophageal mucosa. Patient was evaluated by [employer] in ED, and planned for upper endoscopy in morning. Blood tinged vomitus concerning for perforation vs. superficial mucosal laceration; CT neck soft tissue (noncontrast) reveals no definite mass. Small nonspeific retropharyngeal fluid accumulation noted, without extraluminal air. Repeat CT neck (with contrast) preliminary reading is negative for abscess , or focal fluid collection. Will await official reading, and per ENT recommendations will initiate antibiotics if enhancement of fluid collection. -NPO in anticipation of upper endoscopy. PT/INR, PTT, Type and cross ordered in setting of hemoptysis. -IV Lactated Ringer's at 100mL/ hour -Pain control with Ofirmev 1000mg IV Q6 hours PRN -GI recommendations (Dr. Herbert) appreciated -ENT recommendations (Dr. Moran) appreciated. Pericardial effusion -Partial effusion noted incidentally on CT scan. Currently patient has no chest pain, hemodynamically stable. -Will obtain formal transthoracic ECHO to evaluate FEN -IV Lactated Ringer's at 100mL/ hour -Follow BMP -NPO Prophylaxis -SCDs bilateral lower extremities Disposition -Admit to medical surgical floor. Visit type - Emergency Visit Emergency Visit: Yes ED Registration Date: 08/10/19 Care time: The patient presented to the Emergency Department on the above date and was hospitalized for further evaluation of their emergent condition. - New Patient This patient is new to me today: Yes Date on this admission: 08/10/19 - Critical Care Critical Care patient: No ATTENDING PHYSICIAN STATEMENT I saw and evaluated the patient. I reviewed the resident's note and discussed the case with the resident. I agree with the resident's findings and plan as documented. SUBJECTIVE: OBJECTIVE: ASSESSMENT AND PLAN:
--- NOTE | 2019-08-10 05:49 | PN ---
Teaching Attending Note Name of Resident: Nabor Cardenas ATTENDING PHYSICIAN STATEMENT I saw and evaluated the patient. I reviewed the resident's note and discussed the case with the resident. I agree with the resident's findings and plan as documented. SUBJECTIVE: 23-year-old woman previously healthy, admitted for pain with swallowing after she was eating rice with chicken at 6 PM on 08/09/2019 and experienced esophageal pain and was concerned that she had swallowed a bone from the chicken. Patient reported some coughing up blood after this incident. Noncontrast CT of the neck revealed a small amount of retropharyngeal fluid. It did not show any obvious foreign body, follow-up CT scan of the neck with IV contrast showed no abscess or focal fluid collection, slightly prominent nasopharyngeal palatine tonsils. Unremarkable epiglottis, thyroid gland, parotid, submandibular glands. No lymph node enlargement. Visualized paranasal sinuses mastoid air cells clear. Minimal fluid and air upper esophagus. GI service has evaluated patient for endoscopy. Purpose of endoscopy is to recheck possible foreign body from esophagus. Patient agreed to procedure and is awaiting bed on [facility]. OBJECTIVE: Last Vital Signs Temp Pulse Resp BP Pulse Ox 97.5 F L 91 H 18 119/79 100 08/09/19 23:34 08/09/19 23:34 08/09/19 23:34 08/09/19 23:34 08/09/19 23:34 On physical exam patient is a young woman who appears uncomfortable but is nontoxic appearing. Head was negative for any trauma, no obvious neck masses appreciated. [place] is moist, no exudates appreciated. Lungs are clear to auscultation, cardiac exam was positive for S1, S2 with no murmurs or gallops or rubs. Abdomen soft and nontender no pedal edema. Abnormal Lab Results 08/10/19 08/10/19 08/10/19 00:10 00:10 00:10 WBC 10.1 H MCV 75.7 L MCH 24.4 L Absolute Neuts (auto) 8.8 H Neutrophils % 87.2 H D Monocytes % 1.1 L D INR 1.10 H Chloride 115 H Anion Gap 3 L Calcium 7.7 L AST 42 [address] Albumin 3[address] imaging of neck was appreciated. ASSESSMENT AND PLAN: 23-year-old woman with suspected esophageal foreign body however is not visible on 2 CT scans of neck soft tissues. Scheduled for EGD with GI service. Admit to MedSurg N.p.o. PT, PTT Type and screen Morphine IV if pain Zofran IV if nausea or vomiting EKG #Hypoalbuminemia SCDs for DVT prophylaxis
[2019-08-10] MEDS ORDERED: ACETAMINOPHEN INJECTION 100 ML IVPB ONE (06:22)
[2019-08-10] MEDS: LACTATED RINGERS SOLUTION 1,000 ML IV SCH ×2 (06:53→18:44)
[2019-08-10 06:56] LABS: BASO % 0.1 % (0-2.0); HEMATOCRIT 35.7 % (32.4-45.2); HEMOGLOBIN 11.8 GM/dL (10.7-15.3); LYMPH % 11.7 % (8-40); MCH 24.7 pg (25.7-33.7); MCHC 33.1 g/dl (32.0-36.0); MEAN CELL VOLUME 74.8 fl (80-96); MONO % 0.9 % (3.8-10.2); NEUT % 87.3 % (42.8-82.8); PLATELET COUNT 338 K/MM3 (134-434); RBC 4.78 M/mm3 (3.60-5.2); RDW 13.9 % (11.6-15.6); WHITE BLOOD COUNT 8.2 K/mm3 (4.0-10.0)
[2019-08-10 07:12] LABS: INR 1.13 (0.83-1.09); PROTHROMBIN TIME (PATIENT) 13.4 SEC (9.7-13.0)
[2019-08-10 07:15] LABS: ACTIVATED PTT 35.7 SECONDS (25.2-36.5)
[2019-08-10 07:18] LABS: BLOOD UREA NITROGEN 11.2 mg/dL (7-18); CALCIUM 9.2 mg/dL (8.5-10.1); CREATININE 0.6 mg/dL (0.55-1.3); POTASSIUM 4.5 mmol/L (3.5-5.1)
--- NOTE | 2019-08-10 11:01 | EKG ---
Test Reason : Blood Pressure : / mmHG Vent. Rate : 070 BPM Atrial Rate : 070 BPM P-R Int : 142 ms QRS Dur : 084 ms QT Int : 380 ms P-R-T Axes : 029 058 040 degrees QTc Int : 410 ms NORMAL SINUS RHYTHM NORMAL ECG WHEN COMPARED WITH ECG OF 14-FEB-2018 03:40, NO SIGNIFICANT CHANGE WAS FOUND Confirmed by ABDIRASHID HERRERA MD ([id number]) on 08/10/2019 11:01:09 AM Referred By: Confirmed By:ABDIRASHID HERRERA MD
--- NOTE | 2019-08-10 13:09 | CONSULT ---
Consult - text type - Consultation Consultation Note: ENT Was originally consulted last night regarding throat pain related to a possible throat foreign body, with a non-contrast CT neck that indicated prevertebral fluid. Since then, a subsequent contrast-enhanced CT indicated no evidence of prevertebral fluid, and she has undergone an upper GI endoscopy, although the results are not in the chart at this time. No fever. WBC was initially elevated, but more recently is normal. There has been resolution of the CT abnormality that led to the consult request , and there are no other worrisome factors at this time. If ENT evaluation is still needed, please reconsult me.
--- NOTE | 2019-08-10 15:01 | ECHO ---
Name: SUZIE PETERSON Exam:Adult Echocardiogram Study Date: 08/10/2019 02:16 PM Age: 23 yrs Reason For Study: Evaluate for Pericardial Effusion Height: 64 in Weight: 178 lb BSA: 1.9 m2 MMode/2D Measurements & Calculations IVSd: 0.81 cm Ao root diam: 2.1 cm LVIDd: 4.1 cm LA dimension: 2.8 cm LVIDs: 2.3 cm ACS: 1.9 cm LVPWd: 0.88 cm EDV(Teich): 73.2 ml LVOT diam: 2.0 cm ESV(Teich): 17.4 ml RV S Jus: 12.7 cm/sec Doppler Measurements & Calculations MV E max jus: 75.0 cm/sec Ao V2 max: 126.3 cm/sec MV A max jus: 41.0 cm/sec Ao max P.4 mmHg MV E/A: 1.8 Ao V2 mean: 87.5 cm/sec MV dec time: 0.23 sec Ao mean P.5 mmHg Ao V2 VTI: 31.5 cm DEJUAN(I,D): 2.1 cm2 DEJUAN(V,D): 2.4 cm2 LV V1 max P.0 mmHg SV(LVOT): 67.6 ml LV V1 mean P.0 mmHg LV V1 max: 100.2 cm/sec LV V1 mean: 64.5 cm/sec LV V1 VTI: 22.3 cm TR max jus: 224.0 cm/sec PA V2 max: 67.6 cm/sec TR max P.3 mmHg PA max P.8 mmHg Med Peak E' Jus: 9.2 cm/sec Med E/e': 8.1 Lat Peak E' Jus: 23.8 cm/sec Lat E/e': 3.2 Left Ventricle The left ventricular size, thickness and function are normal. Ejection Fraction = 60-65%. Left Ventri cular Filling pattern is normal for age. Right Ventricle The right ventricle is normal in size and function. Atria Normal left and right atrial size and function. Mitral Valve The mitral valve is normal in structure and function. There is no mitral valve stenosis. There is mil d mitral regurgitation. Tricuspid Valve The tricuspid valve is normal in structure and function. There is mild tricuspid regurgitation. Right ventricular systolic pressure is normal. Aortic Valve The aortic valve opens well. No hemodynamically significant valvular aortic stenosis. No aortic regur gitation is present. Pulmonic Valve The pulmonic valve is not well seen, but is grossly normal. There is no pulmonic valvular stenosis. T here is no pulmonic valvular regurgitation. Great Vessels The aortic root is normal size. Pericardium/Pleura There is no pericardial effusion. Interpretation Summary The left ventricular size, thickness and function are normal Ejection Fraction = 60-65%. The right ventricle is normal in size and function. There is mild mitral regurgitation. There is mild tricuspid regurgitation. There is no pericardial effusion. MD Finley *Carlos 08/10/2019 03:00 PM
[2019-08-10 16:30] VITALS: BMI 27.6
[2019-08-10] MEDS ORDERED: PNEUMOC 13-VAL CONJ-DIP CRM/PF 0.5 ML DISP.SYRIN IM ONE (16:30)
[2019-08-10] MEDS ORDERED: PNEUMOCOCCAL 23 VACCINE 0.5 ML VIAL IM ONE (17:00)
--- NOTE | 2019-08-10 19:14 | PN ---
Physical Exam: SUBJECTIVE: Patient seen and examined at bedside, still endorses throat pain, underwent EGD which appeared grossly unremarkable, no foreign object appreciated , normal mucosa, recommending ENT evaluation. OBJECTIVE: GENERAL: awake. AAxo3, speaks in full sentences HEAD: Normocephalic, atraumatic. Right sided facial scar overlying angle of mandible, intact, well healed. EYES: PERRL, extraocular movements intact, sclera anicteric, conjunctiva clear. ENT: Oropharynx erythematous, without charissa blood. Moist mucous membranes. 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 No wheezes, no crackles. No accessory muscle use. HEART: Regular rate and rhythm. S1, S2 without murmur, rub or gallop. ABDOMEN: Soft, nondistended. Nontender to light and deep palpation x4 quadrants. No rebound tenderness, no guarding. Normoactive bowel sounds x4 quadrants. No hepatosplenomegaly appreciated. EXTREMITIES: 2+ radial, dorsalis pedis pulses bilaterally. Warm, well-perfused. No lower extremity edema bilaterally. NEUROLOGICAL: Cranial nerves II through XII grossly intact. Normal speech. Strength 5/5 bilateral upper and lower extremities. No gross focal deficits. PSYCH: Normal mood, normal affect upon my encounter. SKIN: Warm, dry. No rashes noted. Right sided facial scar overlying angle of mandible, horizontal lower abdominal scar noted. Vital Signs Period Temp Pulse Resp BP Sys/Turner Pulse Ox Last 24 Hr 97.5 F-98.2 F 63-102 14-18 99-150/57-89 97-100 Laboratory Results - last 24 hr 08/09/19 08/10/19 08/10/19 20:00 00:10 00:10 WBC 10.1 H RBC 4.84 Hgb 11.8 Hct 36.6 MCV 75.7 L MCH 24.4 L MCHC 32.2 RDW 14.0 Plt Count 375 MPV 8.4 Absolute Neuts (auto) 8.8 H Neutrophils % 87.2 H D Lymphocytes % 11.4 D Monocytes % 1.1 L D Eosinophils % 0.2 Basophils % 0.1 Nucleated RBC % 0 PT with INR INR PTT (Actin FS) Sodium 142 Potassium 4.5 Chloride 115 H Carbon Dioxide 24 Anion Gap 3 L BUN 10.9 Creatinine 0.6 Est GFR (CKD-EPI)AfAm 148.90 Est GFR (CKD-EPI)NonAf 128.48 Random Glucose 100 Calcium 7.7 L Total Bilirubin 0.5 AST 42 H ALT 19 Alkaline Phosphatase 97 Total Protein 7.2 Albumin 3.2 L Serum , Qual Group A Strep Rapid Negative Blood Type Antibody Screen 08/10/19 08/10/19 08/10/19 00:10 00:10 05:40 WBC 8.2 RBC 4.78 Hgb 11.8 Hct 35.7 MCV 74.8 L MCH 24.7 L MCHC 33.1 RDW 13.9 Plt Count 338 MPV 8.0 Absolute Neuts (auto) 7.1 Neutrophils % 87.3 H Lymphocytes % 11.7 Monocytes % 0.9 L Eosinophils % 0.0 D Basophils % 0.1 Nucleated RBC % 0 PT with INR 13.00 INR 1.10 H PTT (Actin FS) Sodium Potassium Chloride Carbon Dioxide Anion Gap BUN Creatinine Est GFR (CKD-EPI)AfAm Est GFR (CKD-EPI)NonAf Random Glucose Calcium Total Bilirubin AST ALT Alkaline Phosphatase Total Protein Albumin Serum , Qual Negative Group A Strep Rapid Blood Type Antibody Screen 08/10/19 08/10/19 08/10/19 05:40 05:40 05:40 WBC RBC Hgb Hct MCV MCH MCHC RDW Plt Count MPV Absolute Neuts (auto) Neutrophils % Lymphocytes % Monocytes % Eosinophils % Basophils % Nucleated RBC % PT with INR 13.40 H INR 1.13 H PTT (Actin FS) 35.7 Sodium 139 Potassium 4.5 Chloride 109 H Carbon Dioxide 25 Anion Gap 4 L BUN 11.2 Creatinine 0.6 Est GFR (CKD-EPI)AfAm 148.90 Est GFR (CKD-EPI)NonAf 128.48 Random Glucose 129 H Calcium 9.2 Total Bilirubin AST ALT Alkaline Phosphatase Total Protein Albumin Serum , Qual Group A Strep Rapid Blood Type A POSITIVE Antibody Screen Negative Active Medications Generic Name Dose Route Start Last Admin Trade Name Freq PRN Reason Stop Dose Admin Acetaminophen 1,000 mg 08/10/19 04:44 08/10/19 06:53 Ofirmev Injection - IVPB 08/11/19 04:44 1,000 mg Q6H PRN Administration PAIN LEVEL 1-5 Lactated Ringer's 1,000 mls @ 100 mls/hr 08/10/19 04:45 08/10/19 18:44 Lactated Ringers Solution IV 100 mls/hr ASDIR BRANDIE Administration ASSESSMENT/PLAN: 23 year old 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 Odynophgia, no foreign body in EGD, unremarkable EGD, repeat CT imaging does not show paravertebral fluid posterior oropharynx dry w/ some small areas of erythema/blister magic mouthwash PRN, NSAIDs, send TFTs/Monospot test for ?EBV ENT consult GI consult Pericardial effusion Echo WNL no effusion on echo pt. asymptomatic Prophylaxis SCDs bilateral lower extremities Med-surg Visit type - Emergency Visit Emergency Visit: Yes ED Registration Date: 08/10/19 Care time: The patient presented to the Emergency Department on the above date and was hospitalized for further evaluation of their emergent condition. - New Patient This patient is new to me today: Yes Date on this admission: 08/10/19 - Critical Care Critical Care patient: No - Discharge Referral Referred to [facility] Med P.C.: No
[2019-08-10] MEDS ORDERED: IBUPROFEN 600 MG TABLET (FP) PO ONE (19:21)
[2019-08-11 12:33] VITALS: PULSE 89
[2019-08-11] MEDS ORDERED: BENZOCAINE/MENTH/CETYLPYRD CL 1 EACH LOZENGE MM PRN (13:42)
--- NOTE | 2019-08-11 13:46 | DS ---
Physical Exam: SUBJECTIVE: Patient seen and examined OBJECTIVE: Vital Signs Period Temp Pulse Resp BP Sys/Turner Pulse Ox Last 24 Hr 97.9 F-98.5 F 66-99 16-20 91-147/45-75 100-100 PHYSICAL EXAM GENERAL: The patient is awake, alert, and fully oriented, in no acute distress. HEAD: Normal with no signs of trauma. EYES: PERRL, extraocular movements intact, sclera anicteric, conjunctiva clear. ENT: Ears normal, nares patent, oropharynx clear without exudates, moist mucous membranes. NECK: Trachea midline, full range of motion, supple. LUNGS: Breath sounds equal, clear to auscultation bilaterally, no wheezes, no crackles, no accessory muscle use. HEART: Regular rate and rhythm, S1, S2 without murmur, rub or gallop. ABDOMEN: Soft, nontender, nondistended, normoactive bowel sounds, no guarding, no rebound, no hepatosplenomegaly, no masses. EXTREMITIES: 2+ pulses, warm, well-perfused, no edema. NEUROLOGICAL: Cranial nerves II through XII grossly intact. Normal speech, gait not observed. PSYCH: Normal mood, normal affect. SKIN: Warm, dry, normal turgor, no rashes or lesions noted. LABS Laboratory Results - last 24 hr 08/10/19 05:40 Sodium 139 Potassium 4.5 Chloride 109 H Carbon Dioxide 25 Anion Gap 4 L BUN 11.2 Creatinine 0.6 Est GFR (CKD-EPI)AfAm 148.90 Est GFR (CKD-EPI)NonAf 128.48 Random Glucose 129 H Calcium 9.2 TSH 0.52 HOSPITAL COURSE: Date of Admission:08/10/19 Date of Discharge: 08/11/19 Pending monospot-FU with PCP. Even if positive this is an outpatient treatment. Patient was admitted for sore throat. Concern initially that she may have swallowed a bone (not certain; she felt like she had a sore throat when she swallowed). CT and repeat CT reviewed. Negative EGD. No white count or fever. No need for abx. She can followup EBV test with PCP. This likely reflects a viral prodrome Minutes to complete discharge: 33 Discharge Summary Problems reviewed: Yes Reason For Visit: THROAT PAIN Current Active Problems Throat pain (Acute) Condition: Stable - Instructions Referrals: Samuel Cole [Primary Care Provider] - - Home Medications Comprehensive Discharge Medication List: Ambulatory Orders NK [No Known Home Medication] 08/10/19 This patient is new to me today: Yes Date on this admission: 08/11/19 Emergency Visit: No Critical Care patient: No - Discharge Referral Referred to [facility] Med P.C.: No
[2019-08-11] MEDS: LACTATED RINGERS SOLUTION 1,000 ML IV SCH (15:30)
[2019-08-11 15:44] VITALS: BP 130/65; TEMP 98.6
== END 2019-08-11 17:40 | disposition home or self-care (01) | DRG 115 ==
LOC: JERFT 19:48 → JERBED 08-10 04:11 → J5S 08-10 14:10
PROVIDERS: ADMIT Internal Medicine; ATTEND Internal Medicine
PROC: 0DJ08ZZ Inspection of Upper Intestinal Tract, Via Natural or Artificial Opening Endoscopic (ICD-10-PCS; principal; 2019-08-10 07:30)
DX: R07.0 Pain in throat (principal); J39.2 Other diseases of pharynx; E88.09 Other disorders of plasma-protein metabolism, not elsewhere classified
CPT/HCPCS: 36415; 70490-TC; 70491-TC; 71046-TC-FY; 80048; 80053; 84443; 84703; 85025; 85610; 85730; 86308; 86850; 86900; 86901; 87070; 87880; 90732; 93005; 93010; 93306-TC; 99285-25; G0009; J0131

== ENCOUNTER 2021-10-19 14:30 | Day surgery (SDC) | payer OTHER ==
[~2021-10-19 14:30] MED LIST: IRON SUCROSE INJECTION 200 MG in SODIUM CHLORIDE 100 ML IVPB ONE
[2021-10-19 19:04] VITALS: BP 97/63; PULSE 78; TEMP 98.5
== END 2021-10-19 15:15 | disposition home or self-care (01) ==
LOC: JINFUSION 14:30
PROVIDERS: ATTEND Internal Medicine Hematology & Oncology
PROC: 3E033GC Introduction of Other Therapeutic Substance into Peripheral Vein, Percutaneous Approach (ICD-10-PCS; principal; 2021-10-19)
DX: D50.9 Iron deficiency anemia, unspecified (principal)
CPT/HCPCS: 96365; J1756

== ENCOUNTER 2021-10-26 14:18 | Day surgery (SDC) | payer OTHER ==
[2021-10-26 17:27] VITALS: TEMP 97.4
[2021-10-26 17:33] VITALS: BP 108/77; PULSE 70
== END 2021-10-26 15:40 | disposition home or self-care (01) ==
LOC: JCHEMO 14:18 → J7W 14:29 → JCHEMO 15:40
PROVIDERS: ATTEND Internal Medicine Hematology & Oncology
PROC: 3E033GC Introduction of Other Therapeutic Substance into Peripheral Vein, Percutaneous Approach (ICD-10-PCS; principal; 2021-10-26)
DX: D50.9 Iron deficiency anemia, unspecified (principal)
CPT/HCPCS: 96365; J1756

== ENCOUNTER 2021-11-02 13:51 | Day surgery (SDC) | payer OTHER ==
[2021-11-02] MEDS ORDERED: IRON SUCROSE INJECTION 200 MG in SODIUM CHLORIDE 100 ML IVPB ONE (15:00)
[2021-11-02 16:29] VITALS: BP 118/44; PULSE 73; TEMP 98.6
== END 2021-11-02 16:29 | disposition home or self-care (01) ==
LOC: JCHEMO 13:51 → J7W 13:52 → JCHEMO 16:29
PROVIDERS: ATTEND Internal Medicine Hematology & Oncology
PROC: 3E033GC Introduction of Other Therapeutic Substance into Peripheral Vein, Percutaneous Approach (ICD-10-PCS; principal; 2021-11-02)
DX: D50.9 Iron deficiency anemia, unspecified (principal)
CPT/HCPCS: 96365; J1756

== ENCOUNTER 2021-11-09 15:01 | Day surgery (SDC) | payer OTHER ==
[2021-11-09 15:41] VITALS: TEMP 98.1
[2021-11-09 16:07] VITALS: BP 106/67; PULSE 70
== END 2021-11-09 16:40 | disposition home or self-care (01) ==
LOC: JCHEMO 15:01 → J7W 15:02 → JCHEMO 16:40
PROVIDERS: ATTEND Internal Medicine Hematology & Oncology
PROC: 3E033GC Introduction of Other Therapeutic Substance into Peripheral Vein, Percutaneous Approach (ICD-10-PCS; principal; 2021-11-09)
DX: D50.9 Iron deficiency anemia, unspecified (principal)
CPT/HCPCS: 96365; J1756

== ENCOUNTER 2022-03-20 14:41 | Emergency (ER) | payer OTHER ==
[2022-03-20 15:40] LABS: BASO % 0.6 % (0-2.0); EOS % 0.4 % (0-4.5); HEMATOCRIT 37.7 % (32.4-45.2); HEMOGLOBIN 12.4 GM/dL (10.7-15.3); LYMPH % 32.7 % (8-40); MCH 26.5 pg (25.7-33.7); MCHC 32.8 g/dl (32.0-36.0); MEAN CELL VOLUME 80.7 fl (80-96); MEAN PLT VOLUME 7.5 fl (7.5-11.1); NEUT % 59.3 % (42.8-82.8); PLATELET COUNT 333 10^3/uL (134-434); RBC 4.67 M/mm3 (3.60-5.2); RDW 13.7 % (11.6-15.6); WHITE BLOOD COUNT 6.9 K/mm3 (4.0-10.0)
[2022-03-20 15:45] LABS: INR 1.08 (0.83-1.09); PROTHROMBIN TIME (PATIENT) 12.4 SEC (9.7-13.0)
[2022-03-20 15:46] VITALS: RESP 18; BMI 25.2
[2022-03-20 15:48] LABS: ACTIVATED PTT 35.5 SECONDS (25.2-36.5)
[2022-03-20 16:02] LABS: ALBUMIN 3.8 g/dl (3.4-5.0); BLOOD UREA NITROGEN 12.7 mg/dL (7-18); CALCIUM 9.6 mg/dL (8.5-10.1)
[2022-03-20] MEDS ORDERED: DEXAMETHASONE SOD PHOSPHATE 10 MG/1 ML VIAL IVPUSH ONE (16:03)
[2022-03-20] MEDS ORDERED: diazePAM 2 MG TABLET PO ONE (16:03)
[2022-03-20 16:05] LABS: CREATININE 0.6 mg/dL (0.55-1.3)
[2022-03-20 16:06] LABS: BILIRUBIN,TOTAL 0.7 mg/dL (0.2-1); TOT PROT 7.6 g/dl (6.4-8.2)
[2022-03-20] MEDS ORDERED: diazePAM 5 MG TABLET PO ONE (16:06)
[2022-03-20] MEDS ORDERED: DEXAMETHASONE SOD PHOSPHATE 10 MG/1 ML VIAL ONE (16:10)
[2022-03-20] MEDS ORDERED: diazePAM 5 MG TABLET ONE (16:10)
[2022-03-20 18:39] VITALS: BP 119/72; PULSE 78; TEMP 97.8
[2022-03-20 18:57] LABS: EPI CELLS >36 /uL (0-25.1); HYALINE CASTS 0 /uL (0-3.1); URINE APPEARANCE CLEAR; URINE BACTERIA 1069 /uL (0-1359); URINE BILIRUBIN NEGATIVE (NEGATIVE); URINE COLOR YELLOW; URINE GLUCOSE (UA) NEGATIVE (NEGATIVE); URINE KETONE NEGATIVE (NEGATIVE); URINE LEUK ESTERASE 1+ (NEGATIVE); URINE NITRITE NEGATIVE (NEGATIVE); URINE PROTEIN NEGATIVE (NEGATIVE); URINE RBC 7 /uL (0-23.9); URINE UROBILINOGEN 0.2 mg/dL (0.2-1.0); URINE WBC 25 /uL (0-25.8)
== END 2022-03-20 19:13 | disposition home or self-care (01) ==
LOC: JER 14:41
PROC: 3E033GC Introduction of Other Therapeutic Substance into Peripheral Vein, Percutaneous Approach (ICD-10-PCS; principal; 2022-03-20)
DX: M54.30 Sciatica, unspecified side (principal); N39.0 Urinary tract infection, site not specified
CPT/HCPCS: 36415; 71045-TC-FY; 72148-TC; 80053; 81003; 84703; 85025; 85610; 85730; 86850; 86900; 86901; 87086; 93005; 93010; 99284-25; C9803-CS; J1100; U0003; U0005

== ENCOUNTER 2022-05-27 05:11 | Emergency (ER) | payer OTHER ==
[2022-05-27 05:59] VITALS: BP 117/79; PULSE 85; RESP 18; TEMP 98.3; BMI 27.8
[2022-05-27 08:57] LABS: BASO % 0.8 % (0-2.0); EOS % 1.5 % (0-4.5); HEMATOCRIT 38.6 % (32.4-45.2); LYMPH % 50.2 % (8-40); MCH 26.8 pg (25.7-33.7); MCHC 33.6 g/dl (32.0-36.0); MEAN CELL VOLUME 79.7 fl (80-96); MEAN PLT VOLUME 7.6 fl (7.5-11.1); NEUT % 41.5 % (42.8-82.8); PLATELET COUNT 326 10^3/uL (134-434); RBC 4.84 M/mm3 (3.60-5.2); RDW 12.6 % (11.6-15.6); WHITE BLOOD COUNT 5.6 K/mm3 (4.0-10.0)
[2022-05-27 09:11] LABS: CHLORIDE 104 mmol/L (98-107); SODIUM 139 mmol/L (136-145)
[2022-05-27 09:14] LABS: ALBUMIN 3.7 g/dl (3.4-5.0); ANION GAP 8 MMOL/L (8-16); BLOOD UREA NITROGEN 12.7 mg/dL (7-18); CALCIUM 9.1 mg/dL (8.5-10.1); CO2 27 mmol/L (21-32); GLUCOSE,RANDOM 87 mg/dL (74-106)
[2022-05-27 09:18] LABS: CREATININE 0.7 mg/dL (0.55-1.3); SGOT/AST 22 U/L (15-37); SGPT/ALT 34 U/L (13-61)
[2022-05-27 09:19] LABS: BILIRUBIN,TOTAL 0.7 mg/dL (0.2-1); TOT PROT 7.8 g/dl (6.4-8.2)
[2022-05-27 09:21] LABS: ALK PHOS 82 U/L (45-117)
== END 2022-05-27 13:27 | disposition home or self-care (01) ==
LOC: JER 05:11
DX: N93.9 Abnormal uterine and vaginal bleeding, unspecified (principal)
CPT/HCPCS: 36415; 76830-TC; 80053; 84702; 85025; 86850; 86900; 86901; 99284-25

== ENCOUNTER 2023-02-02 08:58 | Emergency (ER) | payer OTHER ==
[2023-02-02 09:04] VITALS: BP 121/79; PULSE 80; RESP 18; TEMP 98.7; BMI 25.7
[2023-02-02] MEDS ORDERED: IBUPROFEN 600 MG TABLET (FP) PO ONE ×2 (10:03→10:15)
[2023-02-02] MEDS ORDERED: ACETAMINOPHEN 325 MG TABLET (FP) PO ONE (10:03)
[2023-02-02] MEDS ORDERED: ACETAMINOPHEN 325 MG TABLET (FP) ONE (10:15)
== END 2023-02-02 13:36 | disposition home or self-care (01) ==
LOC: JER 08:58
DX: R51.9 Headache, unspecified (principal); R42 Dizziness and giddiness; Z20.822 Contact with and (suspected) exposure to COVID-19
CPT/HCPCS: 70450-TC; 84703; 87635; 99284-25

== ENCOUNTER 2023-12-08 06:51 | Emergency (ER) | payer OTHER ==
[2023-12-08 06:59] VITALS: RESP 16; BMI 23.3
[2023-12-08] MEDS ORDERED: METOCLOPRAMIDE HCL INJECTION 10 MG/2 ML VIAL ONE (08:47)
[2023-12-08] MEDS ORDERED: FAMOTIDINE 10 MG/ML VIAL IVPB ONE (08:47)
[2023-12-08] MEDS: SODIUM CHLORIDE 0.9% 500 ML INFUS.BAG IV ONE (09:09)
[2023-12-08] MEDS: METOCLOPRAMIDE HCL INJECTION 10 MG/2 ML VIAL IVPUSH ONE (09:09)
[2023-12-08] MEDS: FAMOTIDINE 20 MG/50 ML IVPB 20 MG/50 ML MG IVPB ONE (09:09)
[2023-12-08 09:13] LABS: EOS % 0.2 % (0-4.5); HEMATOCRIT 33.4 % (32.4-45.2); HEMOGLOBIN 10.3 GM/dL (10.7-15.3); MCH 21.6 pg (25.7-33.7); MCHC 30.9 g/dl (32.0-36.0); MEAN CELL VOLUME 69.9 fl (80-96); MEAN PLT VOLUME 7.6 fl (7.5-11.1); MONO % 3.8 % (3.8-10.2); PLATELET COUNT 344 10^3/uL (134-434); RBC 4.78 M/mm3 (3.60-5.2); RDW 15.9 % (11.6-15.6); WHITE BLOOD COUNT 5.4 K/mm3 (4.0-10.0)
[2023-12-08 09:42] LABS: ALBUMIN 3.5 g/dl (3.4-5.0); CALCIUM 8.8 mg/dL (8.5-10.1)
[2023-12-08] MEDS ORDERED: ACETAMINOPHEN INJECTION 100 ML IVPB ONE (09:42)
[2023-12-08 09:43] LABS: BLOOD UREA NITROGEN 9.7 mg/dL (7-18)
[2023-12-08 09:44] LABS: MAGNESIUM 1.9 mg/dL (1.8-2.4)
[2023-12-08 09:45] LABS: CREATININE 0.6 mg/dL (0.55-1.3)
[2023-12-08 09:47] LABS: BILIRUBIN,TOTAL 0.4 mg/dL (0.2-1); TOT PROT 7.5 g/dl (6.4-8.2)
[2023-12-08] MEDS: ACETAMINOPHEN 1000 MG/100 ML BAG IVPB ONE (10:06)
[2023-12-08 11:43] VITALS: BP 114/73; PULSE 78; TEMP 98.4
== END 2023-12-08 11:25 | disposition home or self-care (01) ==
LOC: JER 06:51
PROC: 3E033GC Introduction of Other Therapeutic Substance into Peripheral Vein, Percutaneous Approach (ICD-10-PCS; principal; 2023-12-08)
PROC: 3E033GC Introduction of Other Therapeutic Substance into Peripheral Vein, Percutaneous Approach (ICD-10-PCS; 2023-12-08)
PROC: 3E033GC Introduction of Other Therapeutic Substance into Peripheral Vein, Percutaneous Approach (ICD-10-PCS; 2023-12-08)
PROC: 3E033NZ Introduction of Analgesics, Hypnotics, Sedatives into Peripheral Vein, Percutaneous Approach (ICD-10-PCS; 2023-12-08)
DX: R11.2 Nausea with vomiting, unspecified (principal); R10.13 Epigastric pain; F10.129 Alcohol abuse with intoxication, unspecified; Y90.3 Blood alcohol level of 60-79 mg/100 ml
CPT/HCPCS: 36415; 71045-TC-FY; 80053; 80307; 83540; 83550; 83690; 83735; 85025; 99284-25; J0131

== ENCOUNTER 2024-04-08 18:15 | Emergency (ER) | payer OTHER ==
[2024-04-08 18:30] VITALS: BP 114/78; PULSE 92; RESP 20; TEMP 98; BMI 25.0
[2024-04-08] MEDS ORDERED: FLUORESCEIN NA 1 EA STRIP ONE (19:30)
[2024-04-08] MEDS ORDERED: TETRACAINE 0.5% OPHTH SOLN 2 ML BOTTLE ONE (19:30)
[2024-04-08] MEDS: FLUORESCEIN NA 1 EA STRIP OD ONE (19:31)
[2024-04-08] MEDS: TETRACAINE 0.5% OPHTH SOLN 2 ML BOTTLE OD ONE (19:31)
[2024-04-08] MEDS: ERYTHROMYCIN 0.5% OPHTHALMIC OINTMENT 3.5 GM TUBE OD SCH (19:42)
== END 2024-04-08 19:47 | disposition home or self-care (01) ==
LOC: JER 18:15
DX: H00.025 Hordeolum internum left lower eyelid (principal)
CPT/HCPCS: 99283-25

== ENCOUNTER 2024-04-14 18:15 | Emergency (ER) | payer OTHER ==
[2024-04-14 18:29] VITALS: BP 119/81; PULSE 85; RESP 20; TEMP 97.9; BMI 25.0
[2024-04-14] MEDS ORDERED: ACETAMINOPHEN 500 MG TABLET (FP) ONE (18:49)
[2024-04-14] MEDS ORDERED: FLUORESCEIN NA 1 EA STRIP ONE (18:50)
[2024-04-14] MEDS ORDERED: TETRACAINE 0.5% OPHTH SOLN 2 ML BOTTLE ONE (18:50)
[2024-04-14] MEDS: ACETAMINOPHEN 500 MG TABLET (FP) PO ONE (19:02)
[2024-04-14] MEDS: TETRACAINE 0.5% OPHTH SOLN 2 ML BOTTLE OS ONE (19:02)
[2024-04-14] MEDS: FLUORESCEIN NA 1 EA STRIP OS ONE (19:03)
== END 2024-04-14 19:54 | disposition home or self-care (01) ==
LOC: JERFT 18:15
DX: H20.9 Unspecified iridocyclitis (principal); H57.12 Ocular pain, left eye; H53.8 Other visual disturbances; R51.9 Headache, unspecified; H53.149 Visual discomfort, unspecified
CPT/HCPCS: 99283-25